=== PATIENT | male | born 1935 | race Caucasian/White ===

== ENCOUNTER 2016-04-04 08:34 | Inpatient (IN) | payer MEDICARE, BC ==
--- NOTE | 2016-04-04 08:51 | ED ---
General Adult HPI - General Stated complaint: fall, chest pain Time Seen by Provider: 04/04/16 08:35 Source: RN notes reviewed - History of Present Illness Initial comments: Patient presents emergency Department after a fall in the garage. Patient denies being lightheaded or dizzy prior to the event. Patient states he was walking across he lost his balance and fell backwards in his head on the concrete. Patient states he has no headache he has no numbness weakness. Patient denies any neck pain. Patient denies any difficulty breathing or shortness of breath per patient states prior to the episode he had no symptoms she just lost spelled that happens to him occasionally. Patient states his chest hurts now a little bit towards the base of this time while at the xiphoid process he states it only hurts when he takes a deep breath or moves his arms back and forth. Patient denies any abdominal pain patient denies nausea vomiting diarrhea. Patient denies any back pain. Patient denies any recent fever chills or cough. Patient denies any lower extremity problems or hip problem - Related Data Home Medications Medication Instructions Recorded Confirmed Aspirin 81 mg PO DAILY 04/21/14 04/04/16 metFORMIN HCL [Glucophage] 500 mg PO DAILY 04/21/14 04/04/16 Lisinopril [Zestril] 10 mg PO DAILY 11/28/14 04/04/16 Hydrochlorothiazide 12.5 mg PO DAILY 04/04/16 04/04/16 Pravastatin Sodium [Pravachol] 40 mg PO DAILY 04/04/16 04/04/16 Previous Rx's Medication Instructions Recorded Metoprolol Tartrate [Lopressor] 25 mg PO BID tab 12/02/14 Allergies Allergy/AdvReac Type Severity Reaction Status Date / Time No Known Allergies Allergy Verified 04/04/16 10:08 Review of Systems ROS Statement: Those systems with pertinent positive or pertinent negative responses have been documented in the HPI. ROS Other: All systems not noted in ROS Statement are negative. Past Medical History Past Medical History: Diabetes Mellitus, Hyperlipidemia, Hypertension Additional Past Medical History / Comment(s): Previous history of a cardiac murmur History of Any Multi-Drug Resistant Organisms: None Reported Past Surgical History: Tonsillectomy Additional Past Surgical History / Comment(s): cataract surgery in 2011, colonscopy Past Anesthesia/Blood Transfusion Reactions: No Reported Reaction Past Psychological History: No Psychological Hx Reported Smoking Status: Former smoker Past Alcohol Use History: None Reported Past Drug Use History: None Reported - Past Family History Father Additional Family Medical History / Comment(s): heart disease General Exam - General Exam Comments Initial Comments: GENERAL: Patient is well-developed and well-nourished. Patient is nontoxic and well- hydrated and is in mild distress. ENT: Neck is soft and supple. No significant lymphadenopathy is noted. Oropharynx is clear. Moist mucous membranes. Neck has full range of motion without eliciting any pain. Occipital region of the skull has a laceration EYES: The sclera were anicteric and conjunctiva were pink and moist. Extraocular movements were intact and pupils were equal round and reactive to light. Eyelids were unremarkable. PULMONARY: Unlabored respirations. Good breath sounds bilaterally. No audible rales rhonchi or wheezing was noted. CARDIOVASCULAR: There is a regular rate and rhythm . Patient has a 2/6 murmur ABDOMEN: Soft and nontender with normal bowel sounds. No palpable organomegaly was noted. There is no palpable pulsatile mass. SKIN: Skin is clear with no lesions or rashes and otherwise unremarkable. NEUROLOGIC: Patient is alert and oriented x3. Cranial nerves II through XII are grossly intact. Motor and sensory are also intact. Normal speech, volume and content. Symmetrical smile. MUSCULOSKELETAL: Normal extremities with adequate strength and full range of motion. No lower extremity swelling or edema. No calf tenderness. LYMPHATICS: No significant lymphadenopathy is noted PSYCHIATRIC: Normal psychiatric evaluation. Course Vital Signs 04/04/16 04/04/16 04/04/16 09:00 09:02 09:30 Temperature 103.1 F H Pulse Rate 110 H 108 H 115 H Respiratory 16 18 18 Rate Blood Pressure 164/75 164/75 163/92 O2 Sat by Pulse 95 96 98 Oximetry 04/04/16 04/04/16 04/04/16 10:09 10:56 11:45 Temperature 102.1 F H 98.1 F Pulse Rate 117 H Respiratory 18 Rate Blood Pressure 143/65 O2 Sat by Pulse 95 Oximetry Procedures - Laceration Laceration #1 Time Out Performed: Yes Indication: laceration Site: scalp Size (cm): 3 Description: stellate Depth: simple, single layer Size of Sutures: other (Riki were put in place) Medical Decision Making - Medical Decision Making EKG shows sinus tachycardia at 108 bpm DE interval is 222 QRS is 96 QT interval 310 QTC 4:15. Patient's EKG shows no ST segment elevation or depression or T- wave abdomen is noted. Chest x-ray is normal CT of the head and neck showed no acute abnormalities patient is somewhat confused initially he said he knew that he had a tetanus and later I asked him he said he has no idea when his tetanus is and he is still having some sternal discomfort with movement or deep breathing or palpation. I spoke with Dr. Purcell he agreed to admit the patient for transfer observation - Lab Data Result diagrams: 04/04/16 09:00 04/04/16 09:00 Lab Results 04/04/16 04/04/16 04/04/16 Range/Units 09:00 09:00 09:00 WBC 9.7 (3.8-10.6) k/uL RBC 4.73 (4.30-5.90) m/uL Hgb 15.4 (13.0-17.5) gm/dL Hct 45.4 (39.0-53.0) % MCV 95.9 (80.0-100.0) fL MCH 32.5 (25.0-35.0) pg MCHC 33.9 (31.0-37.0) g/dL RDW 13.9 (11.5-15.5) % Plt Count 189 (150-450) k/uL Neutrophils % 92 % Lymphocytes % 3 % Monocytes % 4 % Eosinophils % 1 % Basophils % 0 % Neutrophils # 8.9 H (1.3-7.7) k/uL Lymphocytes # 0.3 L (1.0-4.8) k/uL Monocytes # 0.4 (0-1.0) k/uL Eosinophils # 0.1 (0-0.7) k/uL Basophils # 0.0 (0-0.2) k/uL PT (9.0-12.0) sec INR (<1.1) APTT (22.0-30.0) sec Sodium 139 (137-145) mmol/L Potassium 4.0 (3.5-5.1) mmol/L Chloride 99 (98-107) mmol/L Carbon Dioxide 25 (22-30) mmol/L Anion Gap 15 mmol/L BUN 18 (9-20) mg/dL Creatinine 0.78 (0.66-1.25) mg/dL Est GFR (MDRD) Af Amer >60 (>60 ml/min/1.73 sqM) Est GFR (MDRD) Non-Af >60 (>60 ml/min/1.73 sqM) Glucose 165 H (74-99) mg/dL Plasma Lactic Acid Shar (0.7-2.0) mmol/L Calcium 9.2 (8.4-10.2) mg/dL Magnesium 1.6 (1.6-2.3) mg/dL Total Bilirubin 1.3 (0.2-1.3) mg/dL AST 57 (17-59) U/L ALT 70 (21-72) U/L Alkaline Phosphatase 162 H (38-126) U/L Total Creatine Kinase 124 (55-170) U/L CK-MB (CK-2) 1.1 (0.0-2.4) ng/mL CK-MB (CK-2) Rel Index 0.9 Troponin I 0.027 (0.000-0.034) ng/mL Total Protein 7.4 (6.3-8.2) g/dL Albumin 4.1 (3.5-5.0) g/dL Urine Color Urine Appearance (Clear) Urine pH (5.0-8.0) Ur Specific [place] (1.001-1.035) Urine Protein (Negative) Urine Glucose (UA) (Negative) Urine Ketones (Negative) Urine Blood (Negative) Urine Nitrate (Negative) Urine Bilirubin (Negative) Urine Urobilinogen (<2.0) mg/dL Ur Leukocyte Esterase (Negative) Urine RBC (0-5) /hpf Urine WBC (0-5) /hpf Ur Squamous Epith Cells (0-4) /hpf Urine Mucus (None) /hpf Urine Sperm (None) /hpf Influenza Type A RNA (Not Detectd) Influenza Type B (PCR) (Not Detectd) 04/04/16 04/04/16 04/04/16 Range/Units 09:00 09:00 09:23 WBC (3.8-10.6) k/uL RBC (4.30-5.90) m/uL Hgb (13.0-17.5) gm/dL Hct (39.0-53.0) % MCV (80.0-100.0) fL MCH (25.0-35.0) pg MCHC (31.0-37.0) g/dL RDW (11.5-15.5) % Plt Count (150-450) k/uL Neutrophils % % Lymphocytes % % Monocytes % % Eosinophils % % Basophils % % Neutrophils # (1.3-7.7) k/uL Lymphocytes # (1.0-4.8) k/uL Monocytes # (0-1.0) k/uL Eosinophils # (0-0.7) k/uL Basophils # (0-0.2) k/uL PT 11.0 (9.0-12.0) sec INR 1.1 (<1.1) APTT 22.1 (22.0-30.0) sec Sodium (137-145) mmol/L Potassium (3.5-5.1) mmol/L Chloride (98-107) mmol/L Carbon Dioxide (22-30) mmol/L Anion Gap mmol/L BUN (9-20) mg/dL Creatinine (0.66-1.25) mg/dL Est GFR (MDRD) Af Amer (>60 ml/min/1.73 sqM) Est GFR (MDRD) Non-Af (>60 ml/min/1.73 sqM) Glucose (74-99) mg/dL Plasma Lactic Acid Shar 1.3 (0.7-2.0) mmol/L Calcium (8.4-10.2) mg/dL Magnesium (1.6-2.3) mg/dL Total Bilirubin (0.2-1.3) mg/dL AST (17-59) U/L ALT (21-72) U/L Alkaline Phosphatase (38-126) U/L Total Creatine Kinase (55-170) U/L CK-MB (CK-2) (0.0-2.4) ng/mL CK-MB (CK-2) Rel Index Troponin I (0.000-0.034) ng/mL Total Protein (6.3-8.2) g/dL Albumin (3.5-5.0) g/dL Urine Color Urine Appearance (Clear) Urine pH (5.0-8.0) Ur Specific [place] (1.001-1.035) Urine Protein (Negative) Urine Glucose (UA) (Negative) Urine Ketones (Negative) Urine Blood (Negative) Urine Nitrate (Negative) Urine Bilirubin (Negative) Urine Urobilinogen (<2.0) mg/dL Ur Leukocyte Esterase (Negative) Urine RBC (0-5) /hpf Urine WBC (0-5) /hpf Ur Squamous Epith Cells (0-4) /hpf Urine Mucus (None) /hpf Urine Sperm (None) /hpf Influenza Type A RNA Not Detected (Not Detectd) Influenza Type B (PCR) Not Detected (Not Detectd) 04/04/16 Range/Units 09:29 WBC (3.8-10.6) k/uL RBC (4.30-5.90) m/uL Hgb (13.0-17.5) gm/dL Hct (39.0-53.0) % MCV (80.0-100.0) fL MCH (25.0-35.0) pg MCHC (31.0-37.0) g/dL RDW (11.5-15.5) % Plt Count (150-450) k/uL Neutrophils % % Lymphocytes % % Monocytes % % Eosinophils % % Basophils % % Neutrophils # (1.3-7.7) k/uL Lymphocytes # (1.0-4.8) k/uL Monocytes # (0-1.0) k/uL Eosinophils # (0-0.7) k/uL Basophils # (0-0.2) k/uL PT (9.0-12.0) sec INR (<1.1) APTT (22.0-30.0) sec Sodium (137-145) mmol/L Potassium (3.5-5.1) mmol/L Chloride (98-107) mmol/L Carbon Dioxide (22-30) mmol/L Anion Gap mmol/L BUN (9-20) mg/dL Creatinine (0.66-1.25) mg/dL Est GFR (MDRD) Af Amer (>60 ml/min/1.73 sqM) Est GFR (MDRD) Non-Af (>60 ml/min/1.73 sqM) Glucose (74-99) mg/dL Plasma Lactic Acid Shar (0.7-2.0) mmol/L Calcium (8.4-10.2) mg/dL Magnesium (1.6-2.3) mg/dL Total Bilirubin (0.2-1.3) mg/dL AST (17-59) U/L ALT (21-72) U/L Alkaline Phosphatase (38-126) U/L Total Creatine Kinase (55-170) U/L CK-MB (CK-2) (0.0-2.4) ng/mL CK-MB (CK-2) Rel Index Troponin I (0.000-0.034) ng/mL Total Protein (6.3-8.2) g/dL Albumin (3.5-5.0) g/dL Urine Color Yellow Urine Appearance Clear (Clear) Urine pH 7.0 (5.0-8.0) Ur Specific [place] 1.017 (1.001-1.035) Urine Protein Trace H (Negative) Urine Glucose (UA) Negative (Negative) Urine Ketones 3+ H (Negative) Urine Blood Small H (Negative) Urine Nitrate Negative (Negative) Urine Bilirubin Negative (Negative) Urine Urobilinogen <2.0 (<2.0) mg/dL Ur Leukocyte Esterase Negative (Negative) Urine RBC 43 H (0-5) /hpf Urine WBC 4 (0-5) /hpf Ur Squamous Epith Cells <1 (0-4) /hpf Urine Mucus Rare H (None) /hpf Urine Sperm Rare (None) /hpf Influenza Type A RNA (Not Detectd) Influenza Type B (PCR) (Not Detectd) Disposition Clinical Impression: Fall, Concussion, Sternal contusion, Scalp laceration Disposition: ADMITTED IP TO THIS [facility] Time of Disposition: 11:32
[2016-04-04] MEDS ORDERED: IBUPROFEN 600 MG TAB PO STA (09:01)
[2016-04-04] MEDS ORDERED: ACETAMINOPHEN TAB 500 MG TAB PO STA (09:02)
[2016-04-04] MEDS ORDERED: SODIUM CHLORIDE 0.9% 1,000 ML IV ONE ×2 (09:02→11:32)
[2016-04-04 09:36] LABS: Basophils % (A) 0 %; CH 32.9; CHCM 34.4; Eosinophils # (A) 0.1 k/uL (0-0.7); Eosinophils % (A) 1 %; HCT 45.4 % (39.0-53.0); HDW 2.31; HGB 15.4 gm/dL (13.0-17.5); Luc # (Auto) 0.07; Luc % (Auto) 1; Lymphocytes # (A) 0.3 k/uL (1.0-4.8); Lymphocytes % (A) 3 %; MCH 32.5 pg (25.0-35.0); MCHC 33.9 g/dL (31.0-37.0); MCV 95.9 fL (80.0-100.0); Mean Platelet Volume 6.5; Monocytes # (A) 0.4 k/uL (0-1.0); Monocytes % (A) 4 %; Neutrophils # (A) 8.9 k/uL (1.3-7.7); Neutrophils % (A) 92 %; RBC 4.73 m/uL (4.30-5.90); RDW 13.9 % (11.5-15.5); WBC 9.7 k/uL (3.8-10.6); WBC (Perox) 9.75
[2016-04-04 09:38] LABS: INR 1.1 (<1.1); Partial Thromboplastin Time 22.1 sec (22.0-30.0)
[2016-04-04 09:51] LABS: ALT 70 U/L (21-72); AST 57 U/L (17-59); Alkaline Phosphatase 162 U/L (38-126); Anion Gap 15 mmol/L; Blood Urea Nitrogen 18 mg/dL (9-20); Calcium 9.2 mg/dL (8.4-10.2); Carbon Dioxide 25 mmol/L (22-30); Chloride 99 mmol/L (98-107); Glucose 165 mg/dL (74-99); Magnesium 1.6 mg/dL (1.6-2.3); Non-African American GFR(MDRD) >60 (>60 ml/min/1.73 sqM); Sodium 139 mmol/L (137-145); Total Bilirubin 1.3 mg/dL (0.2-1.3); Total Protein 7.4 g/dL (6.3-8.2)
[2016-04-04 09:54] LABS: Appearance,Urine Clear (Clear); Bilirubin,Urine Negative (Negative); Glucose,Urine (UA) Negative (Negative); Ketones,Urine 3+ (Negative); Leukocyte Esterase,Urine Negative (Negative); Mucus,Urine Rare /hpf; Nitrite,Urine Negative (Negative); Particle Count 1742; Protein,Urine Trace (Negative); RBC,Urine 43 /hpf (0-5); Specific Gravity,Urine 1.017 (1.001-1.035); Sperm,Urine Rare /hpf; Squamous Epithelial Cell,Urine <1 /hpf (0-4); UA Billing (MACRO vs. MICRO) MICRO; Urobilinogen,Urine <2.0 mg/dL (<2.0); WBC,Urine 4 /hpf (0-5)
--- NOTE | 2016-04-04 10:01 | CT ---
EXAMINATION TYPE: CT brain wilbur morris DATE OF EXAM: 04/04/2016 9:51 AM COMPARISON: NONE HISTORY: Patient fell today striking the back of his head CT DLP: 1776.1 mGycm, Automated exposure control for dose reduction was used. CONTRAST: None CT of the brain is performed utilizing 3 mm thick sections through the posterior fossa and 3 mm thick sections through the remaining calvarium. Study is performed within 24 hours of arrival to the hospital. No abnormal hyperdensity is present to suggest an acute intracranial hemorrhage. No mass lesion is evident. No acute infarcts are evident. Chronic appearing periventricular white matter ischemic type changes are present. Ventricles and sulci are appropriate for the patient age. No acute fractures are evident. Soft tissue swelling is over the occipital region. Paranasal sinuses and mastoid air cells within the [id number] are clear. IMPRESSIONS: 1. Periventricular white matter ischemic changes, stable. CT cervical spine. COMPARISON: None CT of the cervical spine is performed in the axial plane at 2 mm thick sections. Reconstructed image s in the coronal, and sagittal plane are reviewed on the computer. No acute fractures are evident. There is some minimal kyphosis C5-C6. Normal lordosis otherwise present. There is minimal anterior simmons bluxation C7 anterior and T1. Degenerative disc changes are present C5-6, C6-7 and C7-T1. Spondylosis is present. Facet hypertrophy is present C3-4. Facet hypertrophy is present on left at C4-5. Vertebral body heights are preserved. No spinal canal stenosis is evident. Some foraminal narrowing is present at the facet hypertrophy levels. IMPRESSIONS: 1. No acute osseous abnormality. 2. Minimal anterior subluxation C7 on T1. 3. Facet degenerative changes
[2016-04-04 10:16] LABS: Creatine Kinase MB 1.1 ng/mL (0.0-2.4); Troponin I 0.027 ng/mL (0.000-0.034)
--- NOTE | 2016-04-04 10:43 | XR ---
EXAMINATION TYPE: XR chest 2V DATE OF EXAM: 04/04/2016 10:32 AM COMPARISON: Prior chest x-ray 27 November 2014 HISTORY: Chest pain, fall TECHNIQUE: Frontal and lateral views of the chest are obtained. FINDINGS: There is no focal air space opacity, pleural effusion, or pneumothorax seen. The cardiac silhouette size is within normal limits. There are overlying cardiac leads. The entire costophrenic angle on the left is not included on the exam. The osseous structures are intact. IMPRESSION: No acute cardiopulmonary process.
[2016-04-04] MEDS ORDERED: DIPH,PERTUS(ACELL)TETVAC-LF 0.5 ML VIAL IM ONE (10:57)
[2016-04-04] MEDS ORDERED: LEVOFLOXACIN 750MG-D5W PMX 750 MG in DEXTROSE/WATER 1 150ML.BAG IVPB STA (11:25)
[2016-04-04 13:18] LABS: Glucose,Whole Blood 137 mg/dL (75-99)
[2016-04-04] MEDS: IBUPROFEN 600 MG TAB PO SCH ×2 (15:50→21:37)
[2016-04-04 16:35] VITALS: BMI 29.4
[2016-04-04 16:58] LABS: Glucose,Whole Blood 199 mg/dL (75-99)
[2016-04-04] MEDS: ACETAMINOPHEN TAB 500 MG TAB PO PRN (17:10)
[2016-04-04] MEDS: INSULIN LISPRO (humaLOG) 300 UNIT/3 ML VIAL SQ SCH ×2 (18:10→21:32)
[2016-04-04 21:16] LABS: Glucose,Whole Blood 115 mg/dL (75-99)
[2016-04-04] MEDS: METOPROLOL TARTRATE 25 MG TAB PO SCH (21:36)
[2016-04-05] MEDS: ACETAMINOPHEN TAB 500 MG TAB PO PRN ×3 (00:07→13:17)
[2016-04-05 07:00] LABS: Glucose,Whole Blood 123 mg/dL (75-99)
[2016-04-05] MEDS: INSULIN LISPRO (humaLOG) 300 UNIT/3 ML VIAL SQ SCH ×5 (07:44→21:04)
[2016-04-05] MEDS: IBUPROFEN 600 MG TAB PO SCH ×3 (07:50→21:00)
--- NOTE | 2016-04-05 07:59 | HP ---
DATE OF ADMISSION: CHIEF COMPLAINT: Fall. HISTORY OF PRESENT ILLNESS: This 80-year-old gentleman was admitted to the hospital after he fell. The patient was at [facility]. He was balancing an egg muffin in one hand and a coffee in another hand and walking towards the car and as he stepped off the curb he lost his balance. He balanced backwards. He stepped back, however, he kept going down and fell onto the concrete ground. The patient hit his head. He thinks he might have momentarily lost consciousness. He recalls that he suddenly noticed that the EMS was there. The patient totally was alert. He denied any other symptoms; however, in the emergency room, the patient was also noted to be febrile with a temperature of 103.1. He has a heart rate of 108, respirations 18, blood pressure 164/75, pulse ox 96% on 2 L. The patient had no explainable source of fever. The patient had denied any symptoms of fever. He does feel generalized weakness for the past couple of weeks. He has had some pain in the right knee joint and then received a cortisone shot in the right knee about [address] Xiong. The patient denied any exacerbation of pain in the right knee. He says the shot helped about a week. He continues to have discomfort in the knee. He has difficulty walking with those painful knees. The patient's temperature as mentioned was 103.1 after initial Motrin, the patient's fever has come down. The patient also complained of pain in the right parasternal area. The pain is aggravated by movements. He did not have any pain prior to this fall. The pain is only since the fall. The patient denies any other associated symptoms of cough, congestion, flu symptoms, diarrhea, or any urinary symptoms. In the past, the patient has had episodes of spontaneous urinary tract infections. His urinalysis in the emergency room was fairly clean. He had 43 RBCs. His influenza was negative. The patient did have 3+ ketones in the urine. Past medical history is primarily significant for diabetes mellitus type 2, well controlled. He has had it for the past 12 years. History of hypertension for 38 years. He had a pneumonia back in 2007 and he has had a previous history of colonic diverticulosis with bleeding. He has a history of pericarditis back in 1977 with no recurrence. He does have as mentioned above episodes of urinary tract infections. The patient does suffer from degenerative arthritis. Past surgical history included tonsillectomy, cataract surgery and previous ( ) resection. 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 PERSONAL HISTORY: The patient is an ex-smoker, quit smoking in 1967. He used to smoke a pack per day for 20 years. Alcohol up to 2 drinks a day. VACCINATIONS: Tetanus shot less than 10 years about 9 years now. Annual flu shots. He has had a Pneumovax in the past. Allergies to BEE STINGS with local reaction; with PREDNISONE he does not feel well. Medications at home include: 1. Pravastatin 40 mg daily. 2. Aspirin 81 mg daily. 3. Glucophage 500 mg daily. 4. Metoprolol 25 mg b.i.d. 5. Lisinopril 10 mg daily. 6. Hydrochlorothiazide 12.5 mg daily. 7. He takes multivitamin daily. SOCIAL HISTORY: The patient is . 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 Most of the time he lives in [place]. The patient does periodically bike. FAMILY MEDICAL HISTORY: Father at the age of 93 of ASHD. Mother at the age of 71 she had significant arthritis with complications. The patient has had 2 brothers, one with history of coronary artery disease. All the 4 sisters had [id number]. They are all carriers. The patient has had no children. REVIEW OF SYSTEMS: NEURO: Denied any headaches or dizziness prior to the fall. He does have some headache at the site of scalp injury. Possible momentary loss of consciousness or seizures. Denied any double vision, blurred vision. No symptoms of syncope prior to fall or dizziness prior to fall. PSYCH: No anxiety, depression. CARDIAC: Denies chest pain, angina, palpitation. RESPIRATORY: Denies shortness of breath, cough, hemoptysis. GI: Denied any nausea, vomiting, abdominal pain, diarrhea, constipation, hematochezia, melena. : Denies symptoms of dysuria, hematuria. Does have some frequency. EXTREMITIES: Some pain in the right knee joint, especially the right knee. CONSTITUTIONAL: No chills. Patient did not know he had a fever, noted to have a temperature in the ER. SKIN: No rashes. MUSCULOSKELETAL: Complaint of pain in the right lower parasternal area with movements. No tenderness of the ribs on the right side. ENT: Decreased hearing recently bought new hearing aids. ORAL: No symptoms. PHYSICAL EXAMINATION: Pleasant 80-year-old who at present is awake, alert, oriented. Reported to have some intermittent mild confusion according to the ER physician and subsequently by the nurse; however, at my time of evaluation between the ER physician and the floor nurse, the patient did not exhibit any confusion. VITAL SIGNS: As mentioned above earlier, patient did have a fever. At the time of my evaluation, patient's temperature was 102.1, pulse 117, respirations 18, blood pressure 143/65, pulse ox of 95% on 2 L. HEENT: Normocephalic. The patient have a scalp laceration left occipital area. Ears reveal no drainage. Pupils are reactive. Conjunctivae are pink. Scleral nonicteric. Nostrils clear. Oral cavity is moist. Neck reveals no JVD, carotid bruits, or thyromegaly. Chest examination is clear to auscultation. CARDIAC: Normal S1, S2 with no gallops, murmurs or rubs appreciated. Abdomen is soft, no palpable masses. Bowel sounds are normal. No organomegaly. No abdominal bruits. The patient does have mild tenderness of the right parasternal rib area and right knee reveals significant degenerative arthritis. NEUROLOGICALLY: Awake, alert, oriented x3 at present evaluation. Cranial nerves 2 through 12 appear intact. Equal bilateral hand grasps and strength in both upper extremities is good. Lower extremities equal strength. Patient's plantars and equivocal bilateral. Plantars are downgoing bilateral. The DTRs are symmetrical bilateral. Laboratory assessment was a CAT scan of the brain and neck which revealed periventricular white matter ischemic changes, which are stable. C-spine shows minimal anterior subluxation C7 on T1 and degenerative arthritis. Chest x-ray unremarkable. Urinalysis had ketones, 3+ ketones, and RBCs. CBC is normal. White count 9.7 with a slight shift. Chemistry is normal. Glucose was 165. Alkaline phosphatase was 162. Cardiac enzymes negative. ASSESSMENT: 1. Fever source unknown possibly urinary tract infection, cannot be ruled out as he has had recurrent urinary tract infections in the past. 2. Mechanical fall with closed head injury. 3. Scalp laceration. 4. Diabetes mellitus. 5. History of hypertension. 6. Degenerative arthritis right knee. 7. Right parasternal chest wall pain. PLAN: The patient is admitted to the hospital. He will be empirically started on Levaquin. The patient's urine culture is pending. Neuro checks. Monitor blood sugars. If the patient remains stable in the next 24 to 48, he will be discharged. The patient's prognosis is guarded. Condition discussed with the patient. He will require subsequent evaluation by the orthopedic physicians regarding his knee complaints.
[2016-04-05] MEDS: LISINOPRIL 10 MG TAB PO SCH (08:00)
[2016-04-05] MEDS: ASPIRIN 81 MG CHEW PO SCH (08:00)
[2016-04-05] MEDS: METOPROLOL TARTRATE 25 MG TAB PO SCH ×2 (08:00→21:00)
[2016-04-05] MEDS: metFORMIN 500 MG TAB PO SCH (08:00)
[2016-04-05] MEDS: PRAVASTATIN SODIUM 40 MG TAB PO SCH (08:00)
[2016-04-05] MEDS ORDERED: HYDROCHLOROTHIAZIDE 12.5 MG CAP PO SCH (09:00)
[2016-04-05 09:12] LABS: Basophils % (A) 0 %; CH 32.5; Eosinophils # (A) 0.1 k/uL (0-0.7); Eosinophils % (A) 1 %; HCT 44.8 % (39.0-53.0); HDW 2.36; HGB 15.1 gm/dL (13.0-17.5); Immature Gran Flag Moderate; Luc % (Auto) 1; Lymphocytes # (A) 0.6 k/uL (1.0-4.8); Lymphocytes % (A) 4 %; MCH 33.3 pg (25.0-35.0); MCHC 33.7 g/dL (31.0-37.0); MCV 98.9 fL (80.0-100.0); Mean Platelet Volume 6.7; Monocytes # (A) 0.6 k/uL (0-1.0); Monocytes % (A) 4 %; Neutrophils # (A) 14.2 k/uL (1.3-7.7); Neutrophils % (A) 91 %; RBC 4.53 m/uL (4.30-5.90); WBC 15.7 k/uL (3.8-10.6); WBC (Perox) 15.34
[2016-04-05 10:36] LABS: Hemoglobin A1C 6.1 % (4.2-6.1)
[2016-04-05 10:43] LABS: Manual Review Performed; Toxic Granulation Present
[2016-04-05 12:27] LABS: Glucose,Whole Blood 97 mg/dL (75-99)
[2016-04-05] MEDS: LEVOFLOXACIN 500 MG TAB PO SCH (14:20)
[2016-04-05 16:52] LABS: Glucose,Whole Blood 135 mg/dL (75-99)
[2016-04-05] MEDS: HYDROCHLOROTHIAZIDE 12.5 MG CAP PO SCH (18:08)
[2016-04-05 21:01] LABS: Glucose,Whole Blood 149 mg/dL (75-99)
[2016-04-05] MEDS: HEPARIN SODIUM,PORCINE 5,000 UNIT/ML 1 ML VIAL SQ SCH (23:21)
[2016-04-06 07:45] LABS: Glucose,Whole Blood 120 mg/dL (75-99)
[2016-04-06] MEDS: INSULIN LISPRO (humaLOG) 300 UNIT/3 ML VIAL SQ SCH ×4 (08:02→21:28)
[2016-04-06] MEDS: ASPIRIN 81 MG CHEW PO SCH (08:02)
[2016-04-06] MEDS: PRAVASTATIN SODIUM 40 MG TAB PO SCH (08:02)
[2016-04-06] MEDS: LISINOPRIL 10 MG TAB PO SCH (08:02)
[2016-04-06] MEDS: METOPROLOL TARTRATE 25 MG TAB PO SCH ×2 (08:02→21:28)
[2016-04-06] MEDS: HEPARIN SODIUM,PORCINE 5,000 UNIT/ML 1 ML VIAL SQ SCH ×2 (08:03→21:27)
[2016-04-06] MEDS: metFORMIN 500 MG TAB PO SCH (08:03)
[2016-04-06] MEDS: IBUPROFEN 600 MG TAB PO SCH ×3 (08:09→21:29)
--- NOTE | 2016-04-06 08:12 | XR ---
EXAMINATION TYPE: XR chest 2V DATE OF EXAM: 04/06/2016 7:16 AM COMPARISON: Prior chest x-ray third of April 2016, 23 April 2014 HISTORY:Trauma and sternal pain, fever TECHNIQUE: Frontal and lateral views of the chest are obtained. FINDINGS: Minimal blunting of the posterior costophrenic angle may be indicative of a small effusion but appears chronic, there may be some minimal basilar atelectasis. Patient is rotated and there are overlying cardiac leads. Cardiomediastinal silhouette, pulmonary vascularity and sofya are not signif icantly changed. Right shoulder is high riding, suspect chronic rotator cuff tear. Patient is rotated . IMPRESSION: There may be minimal basilar atelectasis. Alternate imaging may been increased sensitivi ty to exclude sternal fracture.
[2016-04-06 09:00] LABS: CH 32.7; HCT 45.5 % (39.0-53.0); HDW 2.51; HGB 14.4 gm/dL (13.0-17.5); MCH 31.6 pg (25.0-35.0); MCHC 31.7 g/dL (31.0-37.0); MCV 99.7 fL (80.0-100.0); Macrocytosis Slight; Mean Platelet Volume 7.5; RBC 4.56 m/uL (4.30-5.90); RDW 14.2 % (11.5-15.5); WBC 14.6 k/uL (3.8-10.6)
[2016-04-06 09:18] LABS: ALT 100 U/L (21-72); AST 101 U/L (17-59); Alkaline Phosphatase 187 U/L (38-126); Anion Gap 15 mmol/L; Blood Urea Nitrogen 35 mg/dL (9-20); Calcium 9.5 mg/dL (8.4-10.2); Carbon Dioxide 24 mmol/L (22-30); Chloride 102 mmol/L (98-107); Glucose 144 mg/dL (74-99); Non-African American GFR(MDRD) >60 (>60 ml/min/1.73 sqM); Sodium 141 mmol/L (137-145); Total Bilirubin 1.7 mg/dL (0.2-1.3); Total Protein 6.7 g/dL (6.3-8.2)
--- NOTE | 2016-04-06 10:16 | PN ---
CHIEF COMPLAINT: Re-evaluation. HISTORY OF PRESENT ILLNESS: This is a 80-year-old gentleman who was admitted to the hospital after a fall. The patient had sustained a closed head injury and a laceration to the scalp. The patient was also noted to be febrile with a temperature of 103. The patient during the night had a low-grade temperature; otherwise he is feeling well. The patient denied any other symptoms. Denies any headaches. He does have a right sternal, parasternal pain since he fell. Denies any shortness of breath. REVIEW OF SYSTEMS: NEURO: Denies any headaches, dizziness. PSYCH: No anxiety. CARDIAC: No chest pain, angina, palpitations except for the right parasternal pain, right lower parasternal pain as mentioned above. GI: No nausea, vomiting, abdominal pain, diarrhea, constipation, hematochezia, melena. : No symptoms of dysuria, hematuria, urgency, frequency. EXTREMITIES: No pain. CONSTITUTIONAL: No fever or chills. PHYSICAL EXAMINATION: Pleasant gentleman in no distress. Vital signs reveal temperature of 100.7 in the night. At the time of this dictation, the patient's temperature earlier today at 1:00 was 102.6. HEENT: Normocephalic. NECK: No JVD. Chest is clear to auscultation. ( ) the patient does have some tenderness in the right breast right lower parasternal area which aggravates with movements. Chest is clear to auscultation and percussion. CARDIAC: Normal S1, S2 with no gallops. Systolic murmur 2/6 left sternal border and right second intercostal space. ABDOMEN: Soft. No palpable masses. Bowel sounds normal. No organomegaly. No abdominal bruits. Extremities reveal no edema. Patient does have DJD changes in the right knee. CONSTITUTIONAL: No fever, chills. ( ) changes. Neurologically awake, alert, oriented x3 with well coordinated movements. LABORATORY ASSESSMENT: White count 15,700, hemoglobin 15.1 with a left shift. Blood culture so far negative. Urine culture is negative so far. The patient's scalp laceration site is clean. ASSESSMENT: 1. Fever source undetermined. 2. Fall at the curb side. 3. Scalp laceration. 4. Closed head injury. 5. Degenerative arthritis right knee. 6. History of hypertension. PLAN: The patient is stable. Continue present medical regimen. The patient's condition discussed with the patient. Prognosis guarded. We will continue to monitor the patient. He is on Levaquin at present and we will continue the same. Patient's prognosis remains guarded. Patient's condition discussed with the patient.
[2016-04-06 11:48] LABS: Erythrocyte Sedimentation Rate 54 mm/hr (0-15)
[2016-04-06 12:08] LABS: Glucose,Whole Blood 101 mg/dL (75-99)
[2016-04-06] MEDS: LEVOFLOXACIN 500 MG TAB PO SCH (14:23)
--- NOTE | 2016-04-06 14:52 | XR ---
Right RIBS HISTORY: Pain 4 views of the right ribs correlated to chest x-ray same day There is motion unmonitored views. No displaced rib fracture is evident. Bone mineralization is reduc ed and could limit sensitivity. Degenerative disc changes in the visualized spine. IMPRESSION: No evidence acute osseous abnormality. Bone scan could be performed for increased sensiti vity as indicated.
[2016-04-06] MEDS: HYDROcodone/APAP 5-325MG 1 EACH TAB PO PRN (16:01)
[2016-04-06 17:15] LABS: Glucose,Whole Blood 125 mg/dL (75-99)
[2016-04-06 21:28] LABS: Glucose,Whole Blood 131 mg/dL (75-99)
[2016-04-06] MEDS: HYDROCHLOROTHIAZIDE 12.5 MG CAP PO SCH (21:28)
[2016-04-07 07:38] LABS: Glucose,Whole Blood 125 mg/dL (75-99)
--- NOTE | 2016-04-07 09:19 | PN ---
DATE OF SERVICE: 04/06/2016 CHIEF COMPLAINT: Re-evaluation. HISTORY OF PRESENT ILLNESS: A 80-year-old gentleman who was admitted to the hospital after a fall. The patient also noted to have a fever. He did have a temperature yesterday. The patient subsequent to that does not have a temperature and his urine and blood cultures have come back negative. Repeat chest x-ray reveals no evidence of infiltrates. The patient continues to have pain in the right chest. Patient's x-ray of the ribs was negative. REVIEW OF SYSTEMS: NEURO: Denies any headaches. No double vision, blurred vision. PSYCH: No anxiety, depression. CARDIAC: No chest pain, angina, palpitation. RESPIRATORY: Denies shortness of breath, cough. GI: No nausea, vomiting, abdominal pain, diarrhea. : No symptoms of dysuria, hematuria. EXTREMITIES: No pain. CONSTITUTIONAL: No fever or chills. PHYSICAL EXAMINATION: A pleasant gentleman in no distress. Vital signs as mentioned above did have a temperature yesterday up 102.6. This morning, patient's temperature 97.1, pulse 93, respirations 20, blood pressure 117/62, pulse ox 95% on room air. HEENT: Normocephalic. Scalp surgical site is clean. NECK: Decreased in motion. Chest is clear to auscultation and percussion with some tenderness in the right lower ribs anteriorly. Lung [place] reveal clear to auscultation. CARDIAC: Normal S1, S2 with no gallops, murmurs. ABDOMEN: Soft. Bowel sounds present. Extremities reveal no edema. Pain in the knee joints. CONSTITUTIONAL: No fever or chills. ASSESSMENT: 1. Fever source unknown. 2. Status post fall. 3. Closed head injury improved. 4. Scalp laceration healing. PLAN: The patient is stable. Continue present medical regimen. The patient's condition discussed with the patient. Prognosis guarded. LABORATORY ASSESSMENT: Today, white count was coming down 14.6. Sed rate was high at 54. BUN 35, creatinine 1.0. Glucose 144. Patient's condition discussed with the patient. Prognosis guarded. Potential discharge home tomorrow if stable.
[2016-04-07] MEDS: HEPARIN SODIUM,PORCINE 5,000 UNIT/ML 1 ML VIAL SQ SCH ×2 (09:50→22:20)
[2016-04-07] MEDS: PRAVASTATIN SODIUM 40 MG TAB PO SCH (09:50)
[2016-04-07] MEDS: LISINOPRIL 10 MG TAB PO SCH (09:50)
[2016-04-07] MEDS: METOPROLOL TARTRATE 25 MG TAB PO SCH ×2 (09:51→22:21)
[2016-04-07] MEDS: metFORMIN 500 MG TAB PO SCH (09:51)
[2016-04-07] MEDS: ASPIRIN 81 MG CHEW PO SCH (09:51)
[2016-04-07] MEDS: IBUPROFEN 600 MG TAB PO SCH ×3 (09:51→22:21)
[2016-04-07] MEDS: INSULIN LISPRO (humaLOG) 300 UNIT/3 ML VIAL SQ SCH ×4 (09:52→22:21)
[2016-04-07] MEDS: HYDROcodone/APAP 5-325MG 1 EACH TAB PO PRN (11:52)
[2016-04-07 12:07] LABS: Glucose,Whole Blood 144 mg/dL (75-99)
--- NOTE | 2016-04-07 13:05 | CDI ---
In responding to this query, please exercise your independent professional judgment. The [facility] Coding Staff and Clinical Documentation Specialists appreciate your assistance in clarifying documentation, maintaining compliance with coding guidelines, accurately documenting patients condition and capturing severity of illness. The fact that a question is asked does not imply that any particular answer is desired or expected. Communication forms are a method of clarifying documentation and are not made part of the Legal Health Record. Thank you in advance for your clarification. Last Revision, January 2015 Carlos Lunsford [address] [facility] [place] [address] Documentation Clarification Form Date: 04/07/2016 12:52:00 PM From: Alysa Diana RN, CCDS Admit Date: 04/05/2016 11:57:00 AM Patient Name: Duane Marie Visit Number: [id number] Dr. Amol Purcell History/Risk Factors: Fall, recurrent UTI Clinical Indicators: WBC: 9.7/15.7/14.6 Left Shift: 8.9/14.2 Lactic acid: 1.3/2.2 Blood cultures: negative Vitals signs on admission: Temp 102.6, HR 109, RR 18, B/P 112/55, Spo2 93% RA Other Clinical Indicators: H&P: "Fever source unknown possibly urinary tract infection, cannot be ruled out as he has had recurrent urinary tract infections in the past." Treatment: Antibiotics: Levaquin 750mg IVPB x1 followed by 500mg PO Q 24 hrs IV Bolus: 1l 0.9%NS followed by 75 cc/hr In your professional opinion, can you please clarify if these findings signify one of the following conditions, whether the condition is POA, and cause, if known? Sepsis Severe Sepsis Septic Shock Unable to determine Other, please specify * Identify the (suspected) organism * Link or clarify if there is associated (due to/with): - Organ failure - Shock SIRS Criteria: 2 or more of the following may indicate SIRS Temperature < 96.8F(36C) or > 101.0F (38C) Heart Rate > 90 bpm Respiratory Rate > 20 breaths/min or PaCO2 < 32 mmHg White Blood Cell Count > 12,000 or < 4,000 cells/mm3 or > 10% bands Please document in your progress notes and discharge summary in order to capture severity of illness and risk of mortality. Include clinical findings that support your diagnosis. FYI: Press F11 to launch patient chart. Place X here if this finding has no clinical significance, is not applicable or if you are not able to provide any additional documentation. SRIKANTH
[2016-04-07] MEDS: LEVOFLOXACIN 500 MG TAB PO SCH (14:11)
[2016-04-07 17:18] LABS: Glucose,Whole Blood 128 mg/dL (75-99)
[2016-04-07 21:20] LABS: Glucose,Whole Blood 120 mg/dL (75-99)
[2016-04-07] MEDS: HYDROCHLOROTHIAZIDE 12.5 MG CAP PO SCH (22:21)
[2016-04-08 07:28] LABS: Glucose,Whole Blood 110 mg/dL (75-99)
[2016-04-08 07:48] VITALS: BP 142/60; PULSE 93; RESP 18; TEMP 96.2
[2016-04-08] MEDS: IBUPROFEN 600 MG TAB PO SCH (08:19)
[2016-04-08] MEDS: LISINOPRIL 10 MG TAB PO SCH (08:20)
[2016-04-08] MEDS: PRAVASTATIN SODIUM 40 MG TAB PO SCH (08:20)
[2016-04-08] MEDS: ASPIRIN 81 MG CHEW PO SCH (08:20)
[2016-04-08] MEDS: METOPROLOL TARTRATE 25 MG TAB PO SCH (08:20)
[2016-04-08] MEDS: HEPARIN SODIUM,PORCINE 5,000 UNIT/ML 1 ML VIAL SQ SCH (08:20)
[2016-04-08] MEDS: metFORMIN 500 MG TAB PO SCH (08:21)
[2016-04-08] MEDS: INSULIN LISPRO (humaLOG) 300 UNIT/3 ML VIAL SQ SCH (08:27)
--- NOTE | 2016-04-08 09:12 | PN ---
DATE OF SERVICE: 04/07/2016 CHIEF COMPLAINT: Re-evaluation. HISTORY OF PRESENT ILLNESS: This gentleman is feeling fairly well. REVIEW OF SYSTEMS: NEURO: Denies any headaches, dizziness. PSYCH: No anxiety. CARDIAC: No chest pain, shortness of breath. RESPIRATORY: No shortness of breath, cough. GI: No nausea, vomiting, abdominal pain, diarrhea. : No symptoms of dysuria, hematuria, urgency, frequency. EXTREMITIES: No pain except in the right knee. CONSTITUTIONAL: No fever or chills. HEMATOLOGIC: No anemia or bleeding disorder. ENDOCRINE: History of diabetes, controlled. MUSCULOSKELETAL: Some pain in the right parasternal area with no clear evidence of fracture of the ribs. The patient seems to have symptoms suggestive of costochondral injury on the right side. CONSTITUTIONAL: No further fever. PHYSICAL EXAMINATION: Pleasant gentleman in no distress. VITAL SIGNS: Temperature 98.1, pulse 95, respirations 21, blood pressure 116/68, pulse ox 94% on room air. HEENT: Normocephalic. NECK: No JVD. Chest is clear to auscultation. CARDIAC: Normal S1, S2 with no gallops, murmurs. The patient does have tenderness in the right parasternal, right lower parasternal area, not in the sternum but in the right costochondral area. ABDOMEN: Soft. Bowel sounds active. EXTREMITIES: No edema. No tenderness. NEUROLOGIC: Awake, alert, oriented with well-coordinated movements. Laboratory assessment: Accu-Cheks which had been fairly good range. ASSESSMENT: 1. Fever resolved. Still suspect patient had lower urinary tract infection. Possible prostatitis. 2. Fall prior to hospitalization. Laceration of scalp. 3. Closed head injury, improved. 4. Diabetes mellitus. 5. Debility. PLAN: The patient at present is stable. Continue present medical regimen. Patient was initially planned for discharge home with home care ( ) issues rather than to the nursing facility. However, after realizing that he does take two people to help him assist to moves around he has elected to go to a nursing facility. The patient's condition discussed with the patient. Prognosis guarded.
--- NOTE | 2016-04-08 10:08 | P.DS ---
Providers Date of admission: 04/05/16 11:57 Attending physician: Amol Purcell Primary care physician: Amol Purcell [facility] Course: History of present illness: 80-year-old gentleman admitted to the hospital after a fall. Prior to that the patient had no particular symptoms. He missed a step on a curb went backwards and fell to the ground causing a closed head injury and scalp laceration. Patient had tiffanie placed in. Wound is healing. No focal neurological signs and CAT scan was negative for any intracranial injury. Patient continued to have fever for about 2 days. He was first noted to have a temperature in the emergency room. Chest x-ray reveals no clear pneumonia, no symptoms of cough congestion. Urine culture negative. He has had previous episodes of similar fever with urinary tract infections and suspected prostatitis. Is also noted to have a history of TURP and carcinoma of the prostate with [place] 6 in no treatment. He has history of diabetes mellitus. Blood sugars adequately controlled history of hypertension on medical therapy. History of degenerative arthritis affecting the right knee and recent intra-articular steroid with no help. The joint is not inflamed. He has no GI symptoms. Still constipated. Urinating adequately. No skin rashes. Patient was started on Levaquin and responded with deffervescence of the fever and improvement in the white count, patient was to go home yesterday however he is a big man and his youth services librarian felt that she could not help him. Patient prior to that had elected not to go to a nursing facility but is agreeable to go to a different nursing facility for rehab. He complains of generalized weakness. Diagnosis to include 1. Fever with presumed urinary tract infection 2. Closed head injury 3. Scalp laceration 4. History of carcinoma of prostate 5. Diabetes mellitus controlled 6. Hypertension controlled 7. Debility. Plan - Discharge Summary New Discharge Prescriptions: HYDROcodone/APAP 5-325MG [[place] 5-325] 1 each PO Q4H PRN #60 tab PRN Reason: Pain Levofloxacin [Levaquin] 500 mg PO Q24H #10 tab Discharge Medication List Aspirin 81 mg PO DAILY 04/21/14 [History] metFORMIN HCL [Glucophage] 500 mg PO DAILY 04/21/14 [History] Lisinopril [Zestril] 10 mg PO DAILY 11/28/14 [History] Metoprolol Tartrate [Lopressor] 25 mg PO BID tab 12/02/14 [Rx] Hydrochlorothiazide 12.5 mg PO DAILY 04/04/16 [History] Pravastatin Sodium [Pravachol] 40 mg PO DAILY 04/04/16 [History] HYDROcodone/APAP 5-325MG [[place] 5-325] 1 each PO Q4H PRN #60 tab 04/07/16 [Rx] Ibuprofen [Motrin] 600 mg PO TID tab 04/07/16 [Rx] Levofloxacin [Levaquin] 500 mg PO Q24H #10 tab 04/07/16 [Rx] Follow up Appointment(s)/Referral(s): Amol Purcell MD [Primary Care Provider] - 04/13/16 9:45 am [facility], [NON-STAFF] - Patient Instructions/Handouts: Type 2 Diabetes in Adults (DC) Discharge Disposition: HOME SELF-CARE
== END 2016-04-08 12:34 | DRG 690 ==
LOC: EC 08:34 → 4MS4W 11:32 → OBSVTOIN 04-05 11:57
PROVIDERS: ADMIT Internal Medicine; ATTEND Internal Medicine
DX: N39.0 Urinary tract infection, site not specified (principal); C61 Malignant neoplasm of prostate; E11.9 Type 2 diabetes mellitus without complications; S06.0X9A Concussion with loss of consciousness of unspecified duration, initial encounter; I10 Essential (primary) hypertension; E78.5 Hyperlipidemia, unspecified; K57.30 Diverticulosis of large intestine without perforation or abscess without bleeding; K59.00 Constipation, unspecified; M17.11 Unilateral primary osteoarthritis, right knee; S01.01XA Laceration without foreign body of scalp, initial encounter; W10.1XXA Fall (on)(from) sidewalk curb, initial encounter; W18.30XA Fall on same level, unspecified, initial encounter; Z79.82 Long term (current) use of aspirin; Z82.49 Family history of ischemic heart disease and other diseases of the circulatory system; Z87.440 Personal history of urinary (tract) infections; Z87.891 Personal history of nicotine dependence
CPT/HCPCS: 12013; 36415; 70450; 71020; 72125; 80053; 81001; 82550; 82553; 83036; 83605; 83735; 84484; 85025; 85027; 85610; 85652; 85730; 87040; 87086; 87502; 90471; 90715; 93005; 96360; 96361; 99285

== ENCOUNTER 2016-04-08 14:59 | Inpatient (IN) | payer MEDICARE, BC ==
[2016-04-08] MEDS ORDERED: SODIUM CHLORIDE 0.9% 1,000 ML IV STA (15:09)
[2016-04-08] MEDS ORDERED: IPRATROPIUM-ALBUTEROL 3 ML NEB INHALATION STA ×2 (15:10→18:09)
[2016-04-08] MEDS ORDERED: MORPHINE SULFATE 4 MG/ML SYRINGE IVP STA (15:21)
[2016-04-08] MEDS ORDERED: RX INFO: IV CONTRAST WAS GIVEN 1 EACH MISC MISCELLANE PRN (15:21)
--- NOTE | 2016-04-08 15:22 | ED ---
General Adult HPI - General Stated complaint: HYPOXIA Time Seen by Provider: 04/08/16 15:06 Source: RN notes reviewed, old records reviewed - History of Present Illness Initial comments: This is a 80-year-old male to the ED co shortness of breath, weakness, dehydration, elevated heart rate, chest pain. Patient has complex recent medical history with prolonged hospitalization found by prolonged rehab stay. Patient sent in by rehab for evaluation of hypoxia, he was said to be disc discharged today. Patient does admit to having increased weakness, and feels like his heart is racing, mildly short of breath - Related Data Previous Rx's Medication Instructions Recorded HYDROmorphone [Dilaudid] 1 mg PO Q3H PRN #30 ml 04/12/16 LORazepam ORAL CONC [Ativan 1 mg PO DIRECTED #30 ml 04/12/16 Intensol] Scopolamine 1.5MG/72Hr Patch 1 patch TRANSDERM Q72H PRN #0 patch 04/12/16 [TransDerm Scop] fentaNYL 12MCG/HR PATCH [Duragesic 1 patch TRANSDERM Q72H #5 patch 04/12/16 12MCG/HR] Allergies Allergy/AdvReac Type Severity Reaction Status Date / Time No Known Allergies Allergy Verified 04/08/16 16:24 Review of Systems ROS Statement: Those systems with pertinent positive or pertinent negative responses have been documented in the HPI. ROS Other: All systems not noted in ROS Statement are negative. Past Medical History Past Medical History: Diabetes Mellitus, Hyperlipidemia, Hypertension Additional Past Medical History / Comment(s): Previous history of a cardiac murmur History of Any Multi-Drug Resistant Organisms: None Reported Past Surgical History: Tonsillectomy Additional Past Surgical History / Comment(s): cataract surgery in 2010, colonscopy Past Anesthesia/Blood Transfusion Reactions: No Reported Reaction Past Psychological History: No Psychological Hx Reported Additional Psychological History / Comment(s): Pt resides alone part of the time. His domestic partner stays with his at times. He uses a cane as needed. He drives. Smoking Status: Former smoker Past Alcohol Use History: None Reported Additional Past Alcohol Use History / Comment(s): Pt started smoking in 9 and quit in 1967. He drinks daily-one or two drinks a day. Past Drug Use History: None Reported - Past Family History Father Additional Family Medical History / Comment(s): heart disease General Exam General appearance: alert, anxious, in distress Head exam: Present: atraumatic, normocephalic, normal inspection Eye exam: Present: normal appearance, PERRL, EOMI. Absent: scleral icterus, conjunctival injection, periorbital swelling ENT exam: Present: mucous membranes dry Neck exam: Present: normal inspection. Absent: tenderness, meningismus, lymphadenopathy Respiratory exam: Present: normal lung sounds bilaterally. Absent: respiratory distress, wheezes, rales, rhonchi, stridor Cardiovascular Exam: Present: normal rhythm, tachycardia, normal heart sounds. Absent: systolic murmur, diastolic murmur, rubs, gallop, clicks GI/Abdominal exam: Present: soft, normal bowel sounds. Absent: distended, tenderness, guarding, rebound, rigid Extremities exam: Present: normal inspection, full ROM, normal capillary refill. Absent: tenderness, pedal edema, joint swelling, calf tenderness Back exam: Present: normal inspection Neurological exam: Present: alert, oriented X3, CN II-XII intact Psychiatric exam: Present: normal affect, normal mood Skin exam: Present: warm, dry, intact, normal color. Absent: rash Course Vital Signs 04/08/16 04/08/16 04/08/16 15:28 15:35 15:55 Temperature 98.8 F Pulse Rate 134 H 133 H 132 H Respiratory 28 H 24 Rate Blood Pressure 125/62 112/59 O2 Sat by Pulse 98 95 Oximetry 04/08/16 04/08/16 04/08/16 16:00 16:16 18:15 Temperature 96.9 F L Pulse Rate 136 H 126 H 107 H Respiratory 24 18 Rate Blood Pressure 84/49 88/52 O2 Sat by Pulse 95 93 L Oximetry 04/08/16 04/08/16 04/08/16 18:37 18:57 18:59 Temperature Pulse Rate 100 100 Respiratory 20 18 Rate Blood Pressure 82/49 87/51 O2 Sat by Pulse 94 L 96 97 Oximetry 04/08/16 19:08 Temperature Pulse Rate 100 Respiratory 18 Rate Blood Pressure 92/55 O2 Sat by Pulse 97 Oximetry - Reevaluation(s) Reevaluation #1: 04/08/16 16:[address] Purcell regarding patient, concern for PE EKG Findings - EKG Comments: EKG Findings:: EKG shows sinus tachycardia rate 134, [place] 194, QRS 94, QTc 462 Medical Decision Making - Medical Decision Making 7 mL year for evaluation elevated heart rate. During evaluation patient has severely elevated d-dimer, ultrasound and VQ or low probability for PE and DVT, patient will be admitted for IV resuscitation and further evaluation and management epoxy, monitoring of respiratory and cardiopulmonary status - Lab Data Result diagrams: 04/10/16 04:54 04/10/16 13:07 Lab Results 04/08/16 04/08/16 04/08/16 Range/Units 15:21 15:21 15:21 WBC 4.1 (3.8-10.6) k/uL RBC 4.63 (4.30-5.90) m/uL Hgb 15.1 (13.0-17.5) gm/dL Hct 44.7 (39.0-53.0) % MCV 96.5 (80.0-100.0) fL MCH 32.5 (25.0-35.0) pg MCHC 33.7 (31.0-37.0) g/dL RDW 14.3 (11.5-15.5) % Plt Count 148 L (150-450) k/uL Neutrophils % 91 % Lymphocytes % 4 % Monocytes % 2 % Eosinophils % 1 % Basophils % 0 % Neutrophils # 3.7 (1.3-7.7) k/uL Lymphocytes # 0.2 L (1.0-4.8) k/uL Monocytes # 0.1 (0-1.0) k/uL Eosinophils # 0.0 (0-0.7) k/uL Basophils # 0.0 (0-0.2) k/uL Manual Slide Review Performed Toxic Granulation Present Poikilocytosis (manual Present PT (9.0-12.0) sec INR (<1.1) APTT (22.0-30.0) sec D-Dimer (<0.60) mg/L FEU Sodium (137-145) mmol/L Potassium (3.5-5.1) mmol/L Chloride (98-107) mmol/L Carbon Dioxide (22-30) mmol/L Anion Gap mmol/L BUN (9-20) mg/dL Creatinine (0.66-1.25) mg/dL Est GFR (MDRD) Af Amer (>60 ml/min/1.73 sqM) Est GFR (MDRD) Non-Af (>60 ml/min/1.73 sqM) Glucose (74-99) mg/dL POC Glucose (mg/dL) 106 H (75-99) mg/dL POC Glu Tripoler Reva Marmolejo Plasma Lactic Acid Shar (0.7-2.0) mmol/L Calcium (8.4-10.2) mg/dL Magnesium (1.6-2.3) mg/dL Total Bilirubin (0.2-1.3) mg/dL AST (17-59) U/L ALT (21-72) U/L Alkaline Phosphatase (38-126) U/L Total Creatine Kinase 103 (55-170) U/L CK-MB (CK-2) 0.9 (0.0-2.4) ng/mL CK-MB (CK-2) Rel Index 0.9 Troponin I 0.035 H* (0.000-0.034) ng/mL NT-Pro-B Natriuret Pep pg/mL Total Protein (6.3-8.2) g/dL Albumin (3.5-5.0) g/dL Urine Color Urine Appearance (Clear) Urine pH (5.0-8.0) Ur Specific [place] (1.001-1.035) Urine Protein (Negative) Urine Glucose (UA) (Negative) Urine Ketones (Negative) Urine Blood (Negative) Urine Nitrate (Negative) Urine Bilirubin (Negative) Urine Urobilinogen (<2.0) mg/dL Ur Leukocyte Esterase (Negative) Urine RBC (0-5) /hpf Urine WBC (0-5) /hpf Ur Squamous Epith Cells (0-4) /hpf Urine Bacteria (None) /hpf Cellular Casts (0) /lpf Hyaline Casts (0-2) /lpf Urine Mucus (None) /hpf 04/08/16 04/08/16 04/08/16 Range/Units 15:21 15:21 15:21 WBC (3.8-10.6) k/uL RBC (4.30-5.90) m/uL Hgb (13.0-17.5) gm/dL Hct (39.0-53.0) % MCV (80.0-100.0) fL MCH (25.0-35.0) pg MCHC (31.0-37.0) g/dL RDW (11.5-15.5) % Plt Count (150-450) k/uL Neutrophils % % Lymphocytes % % Monocytes % % Eosinophils % % Basophils % % Neutrophils # (1.3-7.7) k/uL Lymphocytes # (1.0-4.8) k/uL Monocytes # (0-1.0) k/uL Eosinophils # (0-0.7) k/uL Basophils # (0-0.2) k/uL Manual Slide Review Toxic Granulation Poikilocytosis (manual PT 10.9 (9.0-12.0) sec INR 1.1 (<1.1) APTT 24.7 (22.0-30.0) sec D-Dimer 9.85 H (<0.60) mg/L FEU Sodium 138 (137-145) mmol/L Potassium 3.7 (3.5-5.1) mmol/L Chloride 103 (98-107) mmol/L Carbon Dioxide 17 L (22-30) mmol/L Anion Gap 18 mmol/L BUN 63 H (9-20) mg/dL Creatinine 1.60 H (0.66-1.25) mg/dL Est GFR (MDRD) Af Amer 51 (>60 ml/min/1.73 sqM) Est GFR (MDRD) Non-Af 42 (>60 ml/min/1.73 sqM) Glucose 118 H (74-99) mg/dL POC Glucose (mg/dL) (75-99) mg/dL POC Glu Tripoler ID Plasma Lactic Acid Shar (0.7-2.0) mmol/L Calcium 9.4 (8.4-10.2) mg/dL Magnesium 2.0 (1.6-2.3) mg/dL Total Bilirubin 2.6 H (0.2-1.3) mg/dL AST 155 H (17-59) U/L ALT 131 H (21-72) U/L Alkaline Phosphatase 351 H (38-126) U/L Total Creatine Kinase (55-170) U/L CK-MB (CK-2) (0.0-2.4) ng/mL CK-MB (CK-2) Rel Index Troponin I (0.000-0.034) ng/mL NT-Pro-B Natriuret Pep 741 pg/mL Total Protein 6.4 (6.3-8.2) g/dL Albumin 3.0 L (3.5-5.0) g/dL Urine Color Urine Appearance (Clear) Urine pH (5.0-8.0) Ur Specific [place] (1.001-1.035) Urine Protein (Negative) Urine Glucose (UA) (Negative) Urine Ketones (Negative) Urine Blood (Negative) Urine Nitrate (Negative) Urine Bilirubin (Negative) Urine Urobilinogen (<2.0) mg/dL Ur Leukocyte Esterase (Negative) Urine RBC (0-5) /hpf Urine WBC (0-5) /hpf Ur Squamous Epith Cells (0-4) /hpf Urine Bacteria (None) /hpf Cellular Casts (0) /lpf Hyaline Casts (0-2) /lpf Urine Mucus (None) /hpf 04/08/16 04/08/16 Range/Units 15:21 15:31 WBC (3.8-10.6) k/uL RBC (4.30-5.90) m/uL Hgb (13.0-17.5) gm/dL Hct (39.0-53.0) % MCV (80.0-100.0) fL MCH (25.0-35.0) pg MCHC (31.0-37.0) g/dL RDW (11.5-15.5) % Plt Count (150-450) k/uL Neutrophils % % Lymphocytes % % Monocytes % % Eosinophils % % Basophils % % Neutrophils # (1.3-7.7) k/uL Lymphocytes # (1.0-4.8) k/uL Monocytes # (0-1.0) k/uL Eosinophils # (0-0.7) k/uL Basophils # (0-0.2) k/uL Manual Slide Review Toxic Granulation Poikilocytosis (manual PT (9.0-12.0) sec INR (<1.1) APTT (22.0-30.0) sec D-Dimer (<0.60) mg/L FEU Sodium (137-145) mmol/L Potassium (3.5-5.1) mmol/L Chloride (98-107) mmol/L Carbon Dioxide (22-30) mmol/L Anion Gap mmol/L BUN (9-20) mg/dL Creatinine (0.66-1.25) mg/dL Est GFR (MDRD) Af Amer (>60 ml/min/1.73 sqM) Est GFR (MDRD) Non-Af (>60 ml/min/1.73 sqM) Glucose (74-99) mg/dL POC Glucose (mg/dL) (75-99) mg/dL POC Glu Tripoler ID Plasma Lactic Acid Shar 4.5 H* (0.7-2.0) mmol/L Calcium (8.4-10.2) mg/dL Magnesium (1.6-2.3) mg/dL Total Bilirubin (0.2-1.3) mg/dL AST (17-59) U/L ALT (21-72) U/L Alkaline Phosphatase (38-126) U/L Total Creatine Kinase (55-170) U/L CK-MB (CK-2) (0.0-2.4) ng/mL CK-MB (CK-2) Rel Index Troponin I (0.000-0.034) ng/mL NT-Pro-B Natriuret Pep pg/mL Total Protein (6.3-8.2) g/dL Albumin (3.5-5.0) g/dL Urine Color Yellow Urine Appearance Cloudy (Clear) Urine pH 5.5 (5.0-8.0) Ur Specific [place] 1.012 (1.001-1.035) Urine Protein 1+ H (Negative) Urine Glucose (UA) Negative (Negative) Urine Ketones Negative (Negative) Urine Blood Small H (Negative) Urine Nitrate Negative (Negative) Urine Bilirubin Negative (Negative) Urine Urobilinogen 2.0 (<2.0) mg/dL Ur Leukocyte Esterase Negative (Negative) Urine RBC 2 (0-5) /hpf Urine WBC 4 (0-5) /hpf Ur Squamous Epith Cells 1 (0-4) /hpf Urine Bacteria Occasional H (None) /hpf Cellular Casts 4 (0) /lpf Hyaline Casts 4 H (0-2) /lpf Urine Mucus Occasional H (None) /hpf - Radiology Data Radiology results: report reviewed, image reviewed Critical Care Time Critical Care Time: Yes Total Critical Care Time: 31 Disposition Clinical Impression: Sinus tachycardia, Weakness, Hypoxemia Disposition: ADMITTED IP TO THIS [facility] Condition: Serious
[2016-04-08 15:23] LABS: Glucose,Whole Blood 106 mg/dL (75-99)
[2016-04-08 15:42] LABS: Basophils % (A) 0 %; CH 32.8; CHCM 34.1; Eosinophils % (A) 1 %; HCT 44.7 % (39.0-53.0); HDW 2.63; HGB 15.1 gm/dL (13.0-17.5); Immature Gran Flag Marked; Luc # (Auto) 0.04; Luc % (Auto) 1; Lymphocytes # (A) 0.2 k/uL (1.0-4.8); Lymphocytes % (A) 4 %; MCH 32.5 pg (25.0-35.0); MCHC 33.7 g/dL (31.0-37.0); MCV 96.5 fL (80.0-100.0); Mean Platelet Volume 7.4; Monocytes # (A) 0.1 k/uL (0-1.0); Monocytes % (A) 2 %; Neutrophils # (A) 3.7 k/uL (1.3-7.7); Neutrophils % (A) 91 %; RBC 4.63 m/uL (4.30-5.90); RDW 14.3 % (11.5-15.5); WBC 4.1 k/uL (3.8-10.6); WBC (Perox) 4.45
--- NOTE | 2016-04-08 15:42 | XR ---
EXAMINATION TYPE: XR chest 1V portable DATE OF EXAM: 04/08/2016 3:31 PM COMPARISON: Chest x-ray from 2 days earlier. HISTORY: Chest pain and hypoxia. TECHNIQUE: Single AP portable frontal upright view of the chest is obtained. FINDINGS: Diminished inspiration is seen on current study. There is chronic parenchymal change withou t new suspicious focal air space opacity, pleural effusion, or pneumothorax seen bilaterally. The ca rdiac silhouette size is within normal limits with atherosclerotic thoracic aorta. The osseous stru ctures are demineralized. IMPRESSION: Poor inspiration and chronic parenchymal changes without suspicious acute pulmonary proc ess.
[2016-04-08 15:56] LABS: Calcium 9.4 mg/dL (8.4-10.2); Potassium 3.7 mmol/L (3.5-5.1); Total Bilirubin 2.6 mg/dL (0.2-1.3); Total Protein 6.4 g/dL (6.3-8.2)
[2016-04-08 15:59] LABS: Appearance,Urine Cloudy (Clear); Bacteria,Urine Occasional /hpf; Bilirubin,Urine Negative (Negative); Glucose,Urine (UA) Negative (Negative); Ketones,Urine Negative (Negative); Leukocyte Esterase,Urine Negative (Negative); Mucus,Urine Occasional /hpf; Nitrite,Urine Negative (Negative); PH, Urine 5.5 (5.0-8.0); Particle Count 12336; Protein,Urine 1+ (Negative); RBC,Urine 2 /hpf (0-5); Specific Gravity,Urine 1.012 (1.001-1.035); Squamous Epithelial Cell,Urine 1 /hpf (0-4); UA Billing (MACRO vs. MICRO) MICRO; WBC,Urine 4 /hpf (0-5)
[2016-04-08 16:10] LABS: Manual Review Performed; Toxic Granulation Present
[2016-04-08 16:12] LABS: Creatine Kinase MB 0.9 ng/mL (0.0-2.4); INR 1.1 (<1.1); Partial Thromboplastin Time 24.7 sec (22.0-30.0); Prothrombin Time 10.9 sec (9.0-12.0)
[2016-04-08 16:19] LABS: Troponin I 0.035 ng/mL (0.000-0.034)
--- NOTE | 2016-04-08 17:25 | CT ---
EXAMINATION TYPE: CT brain wo con DATE OF EXAM: 04/08/2016 5:06 PM HISTORY: Patient poor historian. Patient complains of weakness. CT DLP: 1174 mGycm. Automated Exposure Control for Dose Reduction was Utilized. TECHNIQUE: CT scan of the head is performed without contrast. COMPARISON: CT brain April 04, 2016 FINDINGS: There is no acute intracranial hemorrhage or midline shift identified. There is diffuse v entricular and sulcal prominence consistent with diffuse age-related cerebral atrophy. There is low- attenuation in the periventricular white matter consistent with chronic small vessel ischemic change. The globes are intact and the visualized sinuses are clear. Soft tissue density in the right gi asst al auditory canal is felt to reflect cerumen. IMPRESSION: No acute intracranial hemorrhage or midline shift. There is moderate diffuse age-relate d cerebral atrophy and chronic small vessel ischemic change redemonstrated. No significant change fr om prior study is seen.
--- NOTE | 2016-04-08 17:29 | US ---
EXAMINATION TYPE: US venous doppler duplex LE DATE OF EXAM: 04/08/2016 4:44 PM COMPARISON: NONE CLINICAL HISTORY: US. SOB, leg pain and swelling SIDE PERFORMED: Bilateral VESSELS IMAGED: External Iliac Vein (EIV) Common Femoral Vein Deep Femoral Vein Greater Saphenous Vein * Femoral Vein Popliteal Vein Proximal Calf Veins (* superficial vessels) Right Leg: No evidence of DVT at this time Left Leg: No evidence of DVT at this time TECHNOLOGIST IMPRESSION: Exam noted suboptimal due to patient noncooperation per technologist. Satisfactory color flow, phasicity, compressibility is seen in the above levels in the bilateral lowe r extremities. IMPRESSION: No evidence of acute DVT in the bilateral lower extremities.
--- NOTE | 2016-04-08 17:49 | US ---
EXAMINATION TYPE: US gallbladder DATE OF EXAM: 04/08/2016 4:32 PM COMPARISON: CT CAP February 28, 2010 CLINICAL HISTORY: US. ABD pain EXAM MEASUREMENTS: Liver Length: 16.6 cm Gallbladder Wall: 0.5 cm CBD: 0.6 cm Right Kidney: 13.1 x 5.6 x 5.6 cm ANATOMY: TECHNOLOGIST IMPRESSION: Exam is suboptimal due to patient's noncooperation per technologist. Pancreas: Obscured by bowel gas Liver: Heterogeneous with numerous heterogeneous ill-defined lesions scattered throughout, largest w ithin left lateral lobe= 6.5 x 6.3 x 7.9 cm, largest in right lobe= 3.5 x 2.8 x 2.6 cm Gallbladder: Only supine images obtained, pt unable to roll LLD position, wall thickened, no evidenc e of shadowing mobile stones Evidence for sonographic Mcnamara's sign: pt having ABD pain during entire exam CBD: wnl Right Kidney: wnl, lower pole gassed out Abnormal appearance of liver with overall heterogeneity and suggestion of numerous heterogeneous comp candis solid lesions. Further investigation is warranted. IMPRESSION: No shadowing mobile gallstones or convincing ultrasound evidence for acute cholecystitis . Abnormal gallbladder wall thickening may be product of underlying liver disease. Metastatic disease needs to be considered. A multiphasic liver protocol CT or MRI follow-up is advised.
[2016-04-08] MEDS ORDERED: ACETAMINOPHEN IV (For NPO) 1,000 MG in EMPTY BAG 1 BAG IVPB PRN (18:00)
[2016-04-08] MEDS ORDERED: ACETAMINOPHEN IV (For NPO) 1,000 MG in EMPTY BAG 1 BAG IVPB STA (18:00)
[2016-04-08] MEDS ORDERED: KETOROLAC 30 MG/ML 1 ML VIAL IVP STA (18:00)
[2016-04-08] MEDS ORDERED: PIPERACILLIN-TAZOBACTAM 3.375 GM in DEXTROSE/WATER 1 50ML.BAG IVPB STA (18:00)
[2016-04-08] MEDS ORDERED: IV VANCOMYCIN PER PHARMACY 1 EACH MISC MISCELLANE PRN (18:05)
--- NOTE | 2016-04-08 18:10 | NM ---
EXAMINATION TYPE: NM pul vent and perfuse DATE OF EXAM: 04/08/2016 5:57 PM COMPARISON: Chest x-ray from earlier today HISTORY: Chest pain and hypoxia TECHNIQUE: Utilizing inhalation of 71.3 mCi Tc 99m DTPA aerosol and intravenous injection of 5.5 mCi of Tc 99m MAA, ventilation and perfusion images are acquired post injection in multiple projections. FINDINGS: Normal radiotracer distribution is noted in the lungs. There is no evidence of mismatched defects. IMPRESSION: Low probability for pulmonary embolism
[2016-04-08] MEDS ORDERED: VANCOMYCIN 1,500 MG in SODIUM CHLORIDE 0.9% 250 ML IVPB ONE (18:15)
[2016-04-08] MEDS ORDERED: LEVOFLOXACIN 750MG-D5W PMX 750 MG in DEXTROSE/WATER 1 150ML.BAG IVPB SCH (18:15)
[2016-04-08] MEDS ORDERED: SODIUM CHLORIDE 0.9% 2,000 ML IV ONE (18:26)
[2016-04-08] MEDS ORDERED: SODIUM CHLORIDE 0.9% 1,000 ML IV ONE (18:26)
[2016-04-08] MEDS: SODIUM CHLORIDE 0.9% 500 ML IV SCH ×2 (18:30→21:12)
[2016-04-08] MEDS ORDERED: IPRATROPIUM-ALBUTEROL 3 ML NEB INHALATION PRN (18:58)
[2016-04-08 19:25] LABS: Glucose,Whole Blood 107 mg/dL (75-99)
[2016-04-08] MEDS ORDERED: NALOXONE 0.4 MG/ML 1 ML VIAL IV PRN (19:40)
[2016-04-08] MEDS: IPRATROPIUM-ALBUTEROL 3 ML NEB INHALATION SCH (19:51)
[2016-04-08] MEDS ORDERED: IPRATROPIUM-ALBUTEROL 3 ML NEB INHALATION SCH (20:00)
[2016-04-08 22:02] LABS: Amorphous Sediment,Urine Rare /hpf; Appearance,Urine Cloudy (Clear); Bilirubin,Urine Negative (Negative); Glucose,Urine (UA) Negative (Negative); Ketones,Urine Negative (Negative); Leukocyte Esterase,Urine Negative (Negative); Mucus,Urine Occasional /hpf; Nitrite,Urine Negative (Negative); PH, Urine 5.5 (5.0-8.0); Particle Count 21300; Protein,Urine 2+ (Negative); RBC,Urine 2 /hpf (0-5); Specific Gravity,Urine 1.012 (1.001-1.035); Sperm,Urine Rare /hpf; UA Billing (MACRO vs. MICRO) MICRO; Urobilinogen,Urine <2.0 mg/dL (<2.0); WBC,Urine 4 /hpf (0-5)
[2016-04-08 23:08] LABS: Creatine Kinase MB 1.8 ng/mL (0.0-2.4)
[2016-04-08 23:09] LABS: Troponin I 0.076 ng/mL (0.000-0.034)
[2016-04-09] MEDS ORDERED: NOREPINEPHRINE 4 MG in SODIUM CHLORIDE 0.9% 250 ML IV SCH (01:30)
[2016-04-09] MEDS: PIPERACILLIN-TAZOBACTAM 3.375 GM in DEXTROSE/WATER 1 50ML.BAG IVPB SCH ×3 (01:33→16:33)
[2016-04-09 03:48] VITALS: BMI 28.5
[2016-04-09 04:40] LABS: Basophils % (A) 0 %; CH 32.4; CHCM 33.1; Eosinophils % (A) 0 %; HCT 36.3 % (39.0-53.0); HDW 2.74; Luc % (Auto) 3; Lymphocytes # (A) 0.5 k/uL (1.0-4.8); Lymphocytes % (A) 3 %; MCH 31.9 pg (25.0-35.0); MCHC 32.4 g/dL (31.0-37.0); MCV 98.5 fL (80.0-100.0); Mean Platelet Volume 7.8; Monocytes # (A) 0.5 k/uL (0-1.0); Monocytes % (A) 3 %; Neutrophils # (A) 14.5 k/uL (1.3-7.7); Neutrophils % (A) 90 %; RBC 3.68 m/uL (4.30-5.90); RDW 14.7 % (11.5-15.5); WBC 16.1 k/uL (3.8-10.6); WBC (Perox) 17.17
[2016-04-09 04:43] LABS: HGB 11.7 gm/dL (13.0-17.5)
[2016-04-09 04:52] LABS: Calcium 7.3 mg/dL (8.4-10.2); Magnesium 1.9 mg/dL (1.6-2.3); Phosphorous 5.4 mg/dL (2.5-4.5); Potassium 3.8 mmol/L (3.5-5.1)
[2016-04-09] MEDS ORDERED: Magnesium Replacement Protocol 1 EACH MISC MISCELLANE PRN (05:12)
[2016-04-09] MEDS ORDERED: Potassium Replacement Protocol 1 EACH MISC MISCELLANE PRN (05:13)
[2016-04-09 05:24] LABS: Creatine Kinase MB 7.7 ng/mL (0.0-2.4); Troponin I 0.288 ng/mL (0.000-0.034)
[2016-04-09] MEDS: MAGNESIUM SULFATE-D5W PMX 1 GM in DEXTROSE/WATER 1 100ML.BAG IVPB SCH ×2 (05:59→08:10)
[2016-04-09] MEDS ORDERED: POTASSIUM CHLORIDE ER 20 MEQ TAB.ER PO SCH (06:00)
--- NOTE | 2016-04-09 07:19 | XR ---
EXAMINATION TYPE: XR chest 1V DATE OF EXAM: 04/09/2016 6:43 AM CLINICAL HISTORY: Difficulty breathing progress study. TECHNIQUE: Single AP portable upright view of the chest is obtained. COMPARISON: Chest x-ray from one day earlier FINDINGS: There is persistent chronic parenchymal change without new suspicious focal air space opaci ty, pleural effusion, or pneumothorax seen bilaterally. The cardiac silhouette size is stable and upp er limits of normal with atherosclerotic thoracic aorta. The osseous structures are demineralized. IMPRESSION: Overall stable findings, chronic parenchymal change without suspicious new acute infilt rate present.
[2016-04-09] MEDS: IPRATROPIUM-ALBUTEROL 3 ML NEB INHALATION SCH ×2 (07:47→11:27)
[2016-04-09] MEDS: ENOXAPARIN 30 MG/0.3 ML SYRINGE SQ SCH (08:11)
[2016-04-09] MEDS: PANTOPRAZOLE 40 MG/10 ML VIAL IV SCH (08:11)
[2016-04-09 08:21] LABS: Glucose,Whole Blood 98 mg/dL (75-99)
[2016-04-09] MEDS ORDERED: ENOXAPARIN 40 MG/0.4 ML SYRINGE SQ SCH (09:00)
[2016-04-09] MEDS ORDERED: VANCOMYCIN 1,500 MG in SODIUM CHLORIDE 0.9% 250 ML IVPB SCH (09:00)
[2016-04-09] MEDS ORDERED: MAGNESIUM HYDROXIDE 2,400 MG/10 ML CUP PO PRN (09:21)
[2016-04-09 10:57] LABS: Bilirubin, Delta 1.3 mg/dL (0.0-0.2); Total Bilirubin 1.8 mg/dL (0.2-1.3); Total Protein 4.7 g/dL (6.3-8.2)
--- NOTE | 2016-04-09 11:55 | P.CNPUL ---
History of Present Illness Consult date: 04/09/16 Chief complaint: Weakness, shortness of breath, dehydration History of present illness: This is a very pleasant 80-year-old gentleman who was recently inpatient here for about for 5 days. The patient came into the emergency room and was seen by one of the ER doctor is. I do not really get a good sense for what was going on with the patient. The patient came in with primarily weakness and maybe some dehydration. Was found have elevated heart rate. Also one point had a lower blood pressure. The patient had a very extensive evaluation down in the ER including a VQ scan a chest x-ray a CT of the brain Dopplers of the lower extremities, and multiple blood work. Nothing really popped up her bili made a lot of sense as to what was going on. The patient has been on a short course of corticosteroids and the recent past and I was wondering whether or not it could relate to some adrenal insufficiency. Anyway the patient is feeling a bit better this morning. Not much better. Mostly just feels not quite with it. His primary doctor's Dr. Purcell. I think he was being discharged to one of the rehab facilities her snf. He was only there for a short period of time. Review of Systems A 12 point review of systems is performed. Is positive for weakness primarily. The patient just felt unsteady. Really have much in way of other complaints. Maybe a bit shortness of breath and maybe some mild chest discomfort but nothing really major that stands out. He doesn't have any gross complaints right now just doesn't feel quite his normal self. Past Medical History Past Medical History: Diabetes Mellitus, Hyperlipidemia, Hypertension Additional Past Medical History / Comment(s): Previous history of a cardiac murmur History of Any Multi-Drug Resistant Organisms: None Reported Past Surgical History: Prostate Surgery, Tonsillectomy Additional Past Surgical History / Comment(s): cataract surgery in 2010, colonscopy. TURP Past Anesthesia/Blood Transfusion Reactions: No Reported Reaction Past Psychological History: No Psychological Hx Reported Additional Psychological History / Comment(s): Pt resides alone part of the time. His domestic partner stays with his at times. He uses a cane as needed. He drives. Smoking Status: Former smoker Past Alcohol Use History: None Reported Additional Past Alcohol Use History / Comment(s): Pt started smoking in 1957 and quit in 1967. He drinks daily-one or two drinks a day. Past Drug Use History: None Reported - Past Family History Father Additional Family Medical History / Comment(s): heart disease Medications and Allergies Home Medications Medication Instructions Recorded Confirmed Type Aspirin 81 mg PO DAILY 04/21/14 04/08/16 History metFORMIN HCL [Glucophage] 500 mg PO DAILY 04/21/14 04/08/16 History Lisinopril [Zestril] 10 mg PO DAILY 11/28/14 04/08/16 History Hydrochlorothiazide 12.5 mg PO DAILY 04/04/16 04/08/16 History Pravastatin Sodium [Pravachol] 40 mg PO DAILY 04/04/16 04/08/16 History HYDROcodone/APAP 5-325MG [[place] 1 tab PO Q4H PRN 04/08/16 04/08/16 History 5-325] Allergies Allergy/AdvReac Type Severity Reaction Status Date / Time No Known Allergies Allergy Verified 04/08/16 16:24 Physical Exam Osteopathic Statement: *. No significant issues noted on an osteopathic structural exam other than those noted in the History and Physical/Consult. Vitals: Vital Signs Temp Pulse Resp BP Pulse Ox 04/09/16 11:36 99 04/09/16 11:30 93 04/09/16 11:29 25 H 04/09/16 11:00 97.4 F L 94 25 H 111/60 96 04/09/16 10:50 96 19 99/54 97 04/09/16 10:40 95 11 L 99/54 97 04/09/16 10:30 96 18 99/54 97 04/09/16 10:20 95 24 106/62 95 04/09/16 10:10 97 29 H 106/62 97 04/09/16 10:00 98 22 106/62 97 04/09/16 09:50 98 24 115/64 97 04/09/16 09:40 99 24 115/64 96 04/09/16 09:30 99 13 115/64 96 04/09/16 09:20 95 25 H 99/56 97 04/09/16 09:10 95 27 H 99/56 96 04/09/16 09:00 96 24 99/56 97 04/09/16 08:50 95 22 96/56 97 04/09/16 08:40 95 30 H 96/56 97 04/09/16 08:30 94 35 H 96/56 97 04/09/16 08:20 94 21 95/57 98 04/09/16 08:10 93 22 95/57 98 04/09/16 08:01 99 04/09/16 08:00 97.5 F L 92 25 H 95/57 100 04/09/16 07:50 89 21 100/58 100 04/09/16 07:49 89 97 04/09/16 07:40 90 21 99/56 96 04/09/16 07:30 91 24 99/56 96 04/09/16 07:20 96 27 H 112/63 96 04/09/16 07:10 91 18 93/60 98 04/09/16 07:00 90 23 93/60 98 04/09/16 06:50 90 26 H 98/65 97 04/09/16 06:40 91 25 H 93/60 97 04/09/16 06:30 91 24 93/60 97 04/09/16 06:20 91 23 94/54 96 04/09/16 06:10 90 23 80/52 97 04/09/16 06:00 88 22 80/52 97 04/09/16 05:50 90 17 83/54 98 04/09/16 05:40 89 16 85/56 98 04/09/16 05:30 89 19 85/56 97 04/09/16 05:20 91 18 83/52 98 04/09/16 05:10 90 21 80/52 98 04/09/16 05:00 90 20 80/52 97 04/09/16 04:50 92 27 H 85/55 97 04/09/16 04:40 92 23 80/51 97 04/09/16 04:30 91 20 80/51 98 04/09/16 04:20 89 20 76/53 97 04/09/16 04:10 89 19 77/52 98 04/09/16 04:00 91 22 73/50 97 04/09/16 03:50 92 19 92/53 96 04/09/16 03:40 93 22 90/56 98 04/09/16 03:30 95 21 90/56 97 04/09/16 03:20 91 20 71/48 98 04/09/16 03:10 92 20 84/54 97 04/09/16 03:00 93 14 84/54 98 04/09/16 02:50 97.4 F L 93 21 87/58 99 04/09/16 02:40 95 25 H 84/52 99 04/09/16 02:30 92 19 84/52 100 04/09/16 02:20 94 20 90/57 96 04/09/16 02:10 97.5 F L 95 21 72/46 100 04/09/16 02:00 92 16 67/44 99 04/09/16 01:50 91 17 82/50 99 04/09/16 01:40 96 22 75/45 100 04/09/16 01:30 91 16 73/45 99 04/09/16 01:20 92 16 66/42 99 04/09/16 01:10 93 15 71/44 98 04/09/16 01:00 94 16 71/44 99 04/09/16 00:50 97 17 72/47 99 04/09/16 00:40 103 H 18 89/56 98 04/09/16 00:30 99 20 89/56 99 04/09/16 00:20 100 26 H 81/53 99 04/09/16 00:10 99 20 78/50 100 04/09/16 00:06 98 20 78/50 100 04/09/16 00:00 98 22 78/50 99 04/08/16 23:50 95 19 68/44 99 04/08/16 23:40 100 13 75/50 98 04/08/16 23:30 102 H 18 75/50 98 04/08/16 23:20 105 H 20 100/56 99 04/08/16 23:10 109 H 21 85/47 99 04/08/16 23:00 106 H 24 85/47 99 04/08/16 22:50 107 H 20 87/49 98 04/08/16 22:40 108 H 32 H 86/58 98 04/08/16 22:30 107 H 37 H 86/58 98 04/08/16 22:20 107 H 25 H 97/54 99 04/08/16 22:10 107 H 27 H 83/52 98 04/08/16 22:00 107 H 27 H 83/52 98 04/08/16 21:50 105 H 17 83/46 96 04/08/16 21:40 104 H 14 97 04/08/16 21:30 106 H 28 H 82/51 04/08/16 21:20 108 H 22 93/51 93 L 04/08/16 21:10 105 H 17 89/54 92 L 04/08/16 21:00 106 H 19 89/54 93 L 04/08/16 20:50 107 H 27 H 101/50 04/08/16 20:40 105 H 21 92/60 93 L 04/08/16 20:30 108 H 20 92/60 04/08/16 20:20 109 H 21 94/53 92 L 04/08/16 20:10 105 H 23 91/52 95 04/08/16 20:00 104 H 16 91/52 100 04/08/16 19:58 104 H 04/08/16 19:50 102 H 17 80/57 98 04/08/16 19:46 105 H 04/08/16 19:40 103 H 20 91/50 98 04/08/16 19:30 103 H 26 H 91/50 04/08/16 19:21 97.5 F L 28 H 92 L 04/08/16 19:08 100 18 92/55 97 04/08/16 18:59 100 18 87/51 97 04/08/16 18:57 96 04/08/16 18:37 100 20 82/49 94 L 04/08/16 18:15 96.9 F L 107 H 18 88/52 93 L Intake and Output 04/08/16 04/09/16 04/09/16 22:59 06:59 14:59 Intake Total 3870 1190 1042.5 Output Total 80 240 605 Balance 3790 950 437.5 Intake: Intake, IV Titration 3750 950 562.5 Amount Magnesium Sulfate-D5w Pmx 100 1 gm In Dextrose/Water 1 100ml.bag @ 100 mls/hr IVPB Q1H [facility] Rx#: [id number] Piperacillin-Tazobactam 3 50 50 37.5 .375 gm In Dextrose/Water 1 50ml.bag @ 12.5 mls/hr IVPB Q8HR [facility] Rx#: [id number] Sodium Chloride 0.9% 1, 200 800 525 000 ml @ 100 mls/hr IV . Q10H [facility] Rx#:[id number] Sodium Chloride 0.9% 2, 2000 000 ml @ 999 mls/hr IV . Q2H1M [facility] Rx#:[id number] Sodium Chloride 0.9% 500 1500 ml @ 1000 mls/hr IV Q35M [facility] Rx#:[id number] Oral 120 240 480 Output: Urine 80 240 605 Other: Voiding Method Indwelling Catheter Indwelling Catheter Indwelling Catheter Weight 95.254 kg 104.5 kg 104.5 kg Patient Weight 04/10/16 06:59 Weight 104.5 kg No acute distress, oriented 3. HEENT examination is grossly unremarkable. Mucous membranes are moist. There are no oral lesions. He's not receiving any supplemental oxygen. Neck supple. Full range of motion. No adenopathy. Cardiovascular examination reveals regular rhythm rate. Heart rate about 90. S1-S2 normal. No murmur noted. Lungs are relatively clear. No wheezes rhonchi or crackles. Abdomen soft bowel sounds are heard. Extremities are intact. There is no edema. Results - Laboratory Findings CBC and BMP: 04/09/16 04:23 04/09/16 04:23 PT/INR, D-dimer PT 10.9 sec (9.0-12.0) 04/08/16 15:21 INR 1.1 (<1.1) 04/08/16 15:21 D-Dimer 9.85 mg/L FEU (<0.60) H 04/08/16 15:21 Abnormal lab findings: Abnormal Labs 04/08/16 04/08/16 04/08/16 19:00 19:23 22:24 WBC RBC Hgb Hct Plt Count Neutrophils # Lymphocytes # Sodium Carbon Dioxide BUN Creatinine Glucose POC Glucose (mg/dL) 107 H Plasma Lactic Acid Shar Calcium Phosphorus Total Bilirubin Delta Bilirubin AST ALT Alkaline Phosphatase Total Creatine Kinase CK-MB (CK-2) Troponin I 0.076 H* Total Protein Albumin Urine Protein 2+ H Urine Blood Small H Amorphous Sediment Rare H Urine Mucus Occasional H 04/08/16 04/09/16 04/09/16 22:24 04:23 04:23 WBC 16.1 H RBC 3.68 L Hgb 11.7 L D Hct 36.3 L Plt Count 121 L Neutrophils # 14.5 H Lymphocytes # 0.5 L Sodium 136 L Carbon Dioxide 17 L BUN 66 H Creatinine 2.47 H Glucose 151 H POC Glucose (mg/dL) Plasma Lactic Acid Shar 4.1 H* Calcium 7.3 L Phosphorus 5.4 H Total Bilirubin Delta Bilirubin AST ALT Alkaline Phosphatase Total Creatine Kinase CK-MB (CK-2) Troponin I Total Protein Albumin Urine Protein Urine Blood Amorphous Sediment Urine Mucus 04/09/16 04/09/16 04:23 04:23 WBC RBC Hgb Hct Plt Count Neutrophils # Lymphocytes # Sodium Carbon Dioxide BUN Creatinine Glucose POC Glucose (mg/dL) Plasma Lactic Acid Shar Calcium Phosphorus Total Bilirubin 1.8 H Delta Bilirubin 1.3 H AST 209 H ALT 139 H Alkaline Phosphatase 199 H Total Creatine Kinase 224 H CK-MB (CK-2) 7.7 H* Troponin I 0.288 H* Total Protein 4.7 L Albumin 2.0 L Urine Protein Urine Blood Amorphous Sediment Urine Mucus - Diagnostic Findings Chest x-ray: image reviewed U/S of Legs: report reviewed (As I mentioned above the patient had a number of studies including a ventilation perfusion lung scan a brain CT Dopplers of the lower extremities chest x-rays and other tests including blood work. They're all reviewed.) Assessment and Plan (1) Hyperlipidemia Status: Acute (2) Hypertension Status: Acute (3) Sinus tachycardia Status: Acute (4) Weakness Status: Acute (5) Diabetes Status: Acute (6) Fall Status: Acute Plan: Plan The patient's labs x-rays and medications are all reviewed. Additional recommendations suggestions are forthcoming. Dopplers of the lower extremities were negative. Ventilation perfusion lung scan was of low probability. Brain CT did not show anything acute and chest x-ray showed just some mild chronic changes. The rest of the medications labs and so forth will be reviewed. Additional recommendations suggestions are forthcoming. Time with Patient: Greater than 30
--- NOTE | 2016-04-09 11:55 | HP ---
DATE OF ADMISSION: CHIEF COMPLAINT: Hypertension. HISTORY OF PRESENT ILLNESS: This 80-year-old gentleman was admitted to the hospital after evaluation in the emergency room. He had been discharged earlier from the hospital. The patient had been admitted to the hospital a few days ago with a closed head injury. The patient also had a fever at that time with no clear source of infection found. Presumed the patient had a urinary tract infection as he has had that a number of times. The patient was placed on Levaquin at the time of admission and he had responded with both decreased temperature and white count. The patient was seen prior to discharge this morning doing fairly well. He had no complaints of any nature. He had right parasternal pain at the time of admission following the fall and was locally tender in the right lower costochondral margin. The patient at the time had no other symptoms. That pain today was improved. He was discharged to a nursing facility for rehab. The patient was transported by transport van there, admitted there. His vital signs at the time of admission to the nursing facility were stable. After a while the patient as he settled down in his bed in the room suddenly started having shaking, chills and the nursing staff noted that he was hypoxic and hypotensive. He was referred back to the hospital. I did see him in the emergency room after the initial evaluation by the ER physician. The patient due to sudden onset of shortness of breath, hypotension after recent hospitalization where anticoagulation was not used because of head injury and concussion, patient did undergo a VQ scan with low probability of PE. The patient had no evidence of DVT in his legs. The patient was flushed and warm and was suspicious of sepsis. The patient's chest x-ray did not reveal any infiltrates. Ultrasound of the gallbladder does reveal a thickened gallbladder. No clear gallstones are seen, but also noted multiple solid nodules in the liver. The patient's alkaline phosphatase was mildly elevated on admission last week. The patient's bilirubin and hepatic functions were normal; however, today the patient's enzymes are up. The patient's bilirubin is 2.6. The patient denies really any significant upper abdominal pain. The patient does appear toxic, which is drastic change from what he was this morning. Denies any nausea, vomiting. No diarrhea. No bowel movement yet. , no symptoms. Extremities, denies pain except to the right knee. No further chills. The patient in the emergency room is mildly tachycardic and mildly hypotensive. Patient's is receiving IV fluids. Past medical history is significant for diabetes mellitus type 2 well controlled. He has had it for the past 12 years. History of hypertension for 38 years, had pneumonia back in 2007, history of colonic diverticulosis with bleeding in the past. History of pericarditis back in 1977 with no recurrence, multiple episodes of urinary tract infections until he had TURP. 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 Past surgical history is significant for tonsillectomy, cataract surgery, TURP. PERSONAL HISTORY: Ex-smoker, quit smoking in 1967, he used to smoke a pack per day for 20 years. Alcohol up to 2 drinks a day. VACCINATIONS: Tetanus less than 10 years when he was given one. At the time he was given TDAP on 04/04/2016. He did get an annual flu shot. He has had a Pneumovax in the past. ALLERGIC TO BEE STINGS with local reaction and with PREDNISONE he does not feel well. MEDICATIONS: 1. Pravastatin 40 mg daily. 2. Aspirin 81 mg daily. 3. Glucophage 500 mg daily. 4. Metoprolol 25 b.i.d. 5. Lisinopril 10 mg daily. 6. Hydrochlorothiazide 12.5 daily. 7. Multivitamin daily. 8. Levaquin 500 mg daily. 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 He spends quite a bit of time living in [place]. FAMILY MEDICAL HISTORY: Father at the age of 93 years. Mother at the age of 71, she had significant arthritis with complications. The patient has had 2 brothers, one with history of coronary artery disease. All four sisters have [id number]-[id number]. They are carriers. The patient has had no children. REVIEW OF SYSTEMS: NEURO: Denies any headaches. Mild dizziness. No double vision, blurred vision. PSYCH: No anxiety. CARDIAC: Denies chest pain, angina, palpitation. RESPIRATORY: Denies shortness of breath, cough. GI: No nausea or vomiting. Denies any abdominal pain, diarrhea. Has constipation. : No symptoms of dysuria, hematuria. Does have mild incontinence. EXTREMITIES: Denies any edema. Does have pain in the right knee. CONSTITUTIONAL: No fever, did have chills. SKIN: No rashes. HEMATOLOGICAL: No anemia or bleeding. PHYSICAL EXAMINATION: A pleasant 80-year-old gentleman who appears flushed, diaphoretic and weak. Vital signs revealed at the time of ER visit patient's temperature was 98.8, pulse 134, respirations 28, blood pressure 125/62 with pulse ox 98% on room air. While I was evaluating the patient, the patient's blood pressure had gone down to 84/49 with a pulse of 126, pulse ox of 95% on 4-L. Patient given more IV fluids. Subsequently, his blood pressure has been in the 80s to 90s. No fever. Physical examination otherwise reveals HEENT normocephalic, has a laceration in the occipital area with no bleeding or drainage. Riki intact. Neck reveals decreased range of motion. No JVD. No carotid bruits. No nuchal rigidity. Pupils are reactive. Nostrils clear. Oral cavity dry. Ears reveal no drainage. CHEST EXAMINATION: Clear to auscultation. CARDIAC: Distant heart sounds. S1, S2 with no gallops. Tachycardic. Systolic murmur 2/6 left sternal border. ABDOMEN: Mildly protuberant. Mild diffuse tenderness in the upper abdomen, but no clear tenderness at Mcnamara's point. Bowel sounds are active. EXTREMITIES: Reveal trace edema at the ankles. NEUROLOGIC: Awake, alert, oriented though mildly lethargic. Moves both upper and lower extremities. LABORATORY ASSESSMENT: Chest x-ray which was unremarkable. VQ scan is low probability. Venous duplex of the legs did not reveal any DVT. EKG reveals sinus tachycardia with no acute changes. Chest x-ray no acute infiltrates. Urine revealed 2+ protein, small blood, 4 WBC's, negative nitrate, white count is 4100, hemoglobin 15.1, platelets 148. INR is normal. D-dimer 9.85, CO2 17, BUN 63, creatinine 1.6, glucose 118. Plasma lactic acid 4.5, bilirubin 2.6, AST 155, ALT 131, alkaline phosphatase 351. BNP 741, albumin 3.0. ASSESSMENT: 1. Septic shock, source of sepsis possibly ( ). 2. Hepatics lesions, possible malignancy. 3. Recent fall with closed head injury. 4. Diabetes mellitus. 5. History of hypertension. PLAN: The patient is admitted to the ICU. Will have the tube roller follow with the patient. The patient has been started on antibiotics for full coverage. The patient is also receiving IV fluids to help maintain his blood pressure. The patient does have evidence of renal failure related to both sepsis and dehydration. Patient's prognosis remains guarded. Condition discussed with the patient. He is requesting no CPR. Prognosis is guarded.
[2016-04-09 13:05] LABS: Glucose,Whole Blood 132 mg/dL (75-99)
[2016-04-09] MEDS: HYDROcodone/APAP 5-325MG 1 EACH TAB PO PRN (16:33)
[2016-04-09 21:32] LABS: Glucose,Whole Blood 129 mg/dL (75-99)
[2016-04-10] MEDS: PIPERACILLIN-TAZOBACTAM 3.375 GM in DEXTROSE/WATER 1 50ML.BAG IVPB SCH ×3 (00:12→15:50)
[2016-04-10 05:13] LABS: Basophils # (A) 0.1 k/uL (0-0.2); Basophils % (A) 0 %; CH 32.6; CHCM 33.6; Eosinophils # (A) 0.1 k/uL (0-0.7); Eosinophils % (A) 0 %; HCT 37.5 % (39.0-53.0); HDW 2.79; HGB 12.3 gm/dL (13.0-17.5); Luc # (Auto) 0.36; Luc % (Auto) 2; Lymphocytes # (A) 0.5 k/uL (1.0-4.8); Lymphocytes % (A) 3 %; MCH 31.8 pg (25.0-35.0); MCHC 32.7 g/dL (31.0-37.0); MCV 97.5 fL (80.0-100.0); Mean Platelet Volume 8.6; Monocytes # (A) 0.5 k/uL (0-1.0); Monocytes % (A) 3 %; Neutrophils # (A) 16.5 k/uL (1.3-7.7); Neutrophils % (A) 92 %; RBC 3.85 m/uL (4.30-5.90); RDW 14.9 % (11.5-15.5); WBC (Perox) 18.61
[2016-04-10 05:21] LABS: Calcium 7.6 mg/dL (8.4-10.2); Magnesium 2.8 mg/dL (1.6-2.3); Phosphorous 4.2 mg/dL (2.5-4.5); Potassium 3.7 mmol/L (3.5-5.1)
[2016-04-10] MEDS ORDERED: POTASSIUM CHLORIDE ER 20 MEQ TAB.ER PO SCH (06:00)
[2016-04-10 07:49] LABS: Glucose,Whole Blood 122 mg/dL (75-99)
[2016-04-10] MEDS ORDERED: FUROSEMIDE 10 MG/ML 4 ML VIAL IV STA (07:57)
--- NOTE | 2016-04-10 08:12 | XR ---
EXAMINATION TYPE: XR chest 1V DATE OF EXAM: 04/10/2016 6:47 AM COMPARISON: Prior chest x-ray April 2016 HISTORY: Recent fall, sternal pain TECHNIQUE: Single frontal view of the chest is obtained. FINDINGS: No significant interval change is evident. Patchy basilar density may reflect atelectasis. There are overlying cardiac leads and the patient is rotated. Apical pleural thickening is stable. E xam is expiratory. Interstitium is somewhat prominent. Cardiac mediastinal silhouette, pulmonary vasc ularity and sofya not significantly changed. No pneumothorax or pleural effusion. IMPRESSION: No significant interval change. Consider alternate imaging for increased sensitivity as indicated.
[2016-04-10] MEDS: ENOXAPARIN 30 MG/0.3 ML SYRINGE SQ SCH (08:27)
[2016-04-10] MEDS: PANTOPRAZOLE 40 MG/10 ML VIAL IV SCH (08:27)
[2016-04-10] MEDS ORDERED: ASPIRIN 81 MG CHEW PO SCH (09:00)
--- NOTE | 2016-04-10 09:18 | P.PN ---
Subjective This is a very pleasant 80-year-old gentleman The patient came in with primarily weakness and maybe some dehydration. Was found have elevated heart rate. Also one point had a lower blood pressure. The patient received a total of 4 L of IV fluid in the form of normal saline. Pressors were not used. Note that he had significantly abnormal blood work and I realize that the patient is developing acute kidney injury with progressive rise in his creatinine which is up to 2.4. The patient also has abnormalities in the liver function test and an ultrasound of the gallbladder was done and it showed No shadowing mobile gallstones or convincing ultrasound evidence for acute cholecystitis. Abnormal gallbladder wall thickening may be product of underlying liver disease. Metastatic disease needs to be considered knowing that there was numerous ALLERGIES ill-defined lesions scattered throughout the liver largest within the left lateral lobe measuring 6.5 x 7.5 cm in size and the largest on the right measuring 3.5 x 2.8 cm in size. The patient also had an extensive evaluation including a Doppler of the lower extremity that do not to be within normal, VQ scan that do not to be of a low probability, CAT scan of the brain the inside outside sales representative to be within normal, and a chest x-ray did not reveal any evidence of pneumonia. Urinalysis was positive for protein, +2 protein was identified, there was small amount of blood, occasional bacteria, minimal white cells and the cultures been negative. CPK levels were nonelevated. There was some minor troponin leak. The liver function tests remain abnormal. The patient was empirically covered with IV Zosyn. No change in mental status. The patient has history of diabetes mellitus, hypertension, hyperlipidemia, and prostate enlargement with possible prostate cancer and he has a Mililani score of 6 and he is status post TURP. He was recently involved in a fall and he sustained a closed head injury today had. His neurologic signs were within normal limits. He is known to have frequent urine checked infections and suspected to have prostatitis Objective - Vital Signs Vital signs: Vital Signs Temp 97.5 F L 04/10/16 08:00 Pulse 94 04/10/16 08:00 Resp 21 04/10/16 08:00 BP 151/75 04/10/16 08:00 Pulse Ox 97 04/10/16 08:00 Intake & Output 04/09/16 04/10/16 04/10/16 18:59 06:59 18:59 Intake Total 2011.5 632.5 160 Output Total 1245 1999 325 Balance 767.5 -1367.5 -165 Weight 104.5 kg 102.7 kg Intake: IV 100 0.9 at 100 100 Intake, IV Titration 1412.5 512.5 Amount Piperacillin-Tazobactam 3 87.5 62.5 .375 gm In Dextrose/Water 1 50ml.bag @ 12.5 mls/hr IVPB Q8HR [facility] Rx#: [id number] Sodium Chloride 0.9% 1, 1325 450 000 ml @ 100 mls/hr IV . Q10H [facility] Rx#:[id number] Oral 600 120 60 Output: Urine 1245 1999 325 Other: Voiding Method Indwelling Catheter Indwelling Catheter # Bowel Movements 1 - Exam Patient is lethargic, weak yet awake alert and conscious and following commands and answering questions appropriately.Head exam was generally normal. There was no scleral icterus or corneal arcus. Mucous membranes were moist. The patient has a scalp laceration over the posterior had and the areas dry and clean.Neck was supple and without jugular venous distension, thyromegaly, or carotid bruits. Carotids were easily palpable bilaterally. There was no adenopathy.Lungs were clear to auscultation and percussion, and with normal diaphragmatic excursion. No wheezes or rales were noted. Heart sounds are regular and there is a faint systolic ejection murmur grade 2/6 heard throughout the precordium. Examination of the abdomen shows some mild diffuse direct tenderness, no rebound tenderness, no guarding, no ascites, no hernias, no organomegaly.Examination of the extremities revealed easily palpable radial, femoral and pedal pulses. There was no cyanosis, clubbing or edema. - Labs CBC & Chem 7: 04/10/16 04:54 04/10/16 04:54 Labs: Abnormal Lab Results - Last 24 Hours (Table) 04/09/16 04/09/16 04/09/16 Range/Units 04:23 12:55 21:30 WBC (3.8-10.6) k/uL RBC (4.30-5.90) m/uL Hgb (13.0-17.5) gm/dL Hct (39.0-53.0) % Plt Count (150-450) k/uL Neutrophils # (1.3-7.7) k/uL Lymphocytes # (1.0-4.8) k/uL Chloride (98-107) mmol/L Carbon Dioxide (22-30) mmol/L BUN (9-20) mg/dL Creatinine (0.66-1.25) mg/dL Glucose (74-99) mg/dL POC Glucose (mg/dL) 132 H 129 H (75-99) mg/dL Calcium (8.4-10.2) mg/dL Magnesium (1.6-2.3) mg/dL Total Bilirubin 1.8 H (0.2-1.3) mg/dL Delta Bilirubin 1.3 H (0.0-0.2) mg/dL AST 209 H (17-59) U/L ALT 139 H (21-72) U/L Alkaline Phosphatase 199 H (38-126) U/L Total Protein 4.7 L (6.3-8.2) g/dL Albumin 2.0 L (3.5-5.0) g/dL 04/10/16 04/10/16 04/10/16 Range/Units 04:54 04:54 07:48 WBC 18.0 H (3.8-10.6) k/uL RBC 3.85 L (4.30-5.90) m/uL Hgb 12.3 L (13.0-17.5) gm/dL Hct 37.5 L (39.0-53.0) % Plt Count 144 L (150-450) k/uL Neutrophils # 16.5 H (1.3-7.7) k/uL Lymphocytes # 0.5 L (1.0-4.8) k/uL Chloride 109 H (98-107) mmol/L Carbon Dioxide 16 L (22-30) mmol/L BUN 69 H (9-20) mg/dL Creatinine 2.49 H (0.66-1.25) mg/dL Glucose 138 H (74-99) mg/dL POC Glucose (mg/dL) 122 H (75-99) mg/dL Calcium 7.6 L (8.4-10.2) mg/dL Magnesium 2.8 H (1.6-2.3) mg/dL Total Bilirubin (0.2-1.3) mg/dL Delta Bilirubin (0.0-0.2) mg/dL AST (17-59) U/L ALT (21-72) U/L Alkaline Phosphatase (38-126) U/L Total Protein (6.3-8.2) g/dL Albumin (3.5-5.0) g/dL Microbiology - Last 24 Hours (Table) 04/09/16 11:40 Gram Stain - Preliminary Sputum 04/08/16 19:49 Blood Culture - Preliminary Blood No Growth after 24 hours Assessment and Plan Plan: Assessment 1 dehydration along with lactic acidosis, rule out underlying sepsis and the patient was in stable 4 L of IV fluids. Currently is on no pressors. He is on empiric antibiotic coverage with IV Zosyn. All of the cultures of been negative 2 urine tract infection, recently treated with a course of Levaquin 500 mg by mouth daily 3 abnormal liver function tests with heterogeneous ill-defined liver lesions as evident on the ultrasound of the liver. Rule out metastatic disease involving the liver 4 recent fall with a closed head injury and scalp laceration 5 prostate cancer, history of with a Mililani score of 6 status post TURP 7 diabetes mellitus. 8 hypertension 9 hyperlipidemia 10 acute kidney injury, evolving 11 acute leukocytosis white cell count is up to 18 12 acute non-anion gap metabolic acidosis 13 troponin leak plan Continue with IV fluids and the patient is being resuscitated with normal saline at the rate of 100 mL an hour. Proceed with a CAT scan of the abdomen and pelvis. Unfortunately were not to be able to give him IV contrast and will limit this to oral contrast only. Neurosurgery consultation regards to his abdominal pain and discomfort and will follow-up on the CAT scan of the abdomen and pelvis results. Continued empiric antibiotic coverage with IV Zosyn. The urine output and the patient has a Whitehead catheter in place. No evidence of any obstructive uropathy at this point. The patient will be kept in ICU for further monitoring. We'll continue to follow.
[2016-04-10] MEDS ORDERED: IOHEXOL 350 MG/ML 25 ML BOTTLE (ORAL USE) PO PRN ×2 (09:19)
[2016-04-10 10:02] LABS: Amylase <30 U/L (30-110)
[2016-04-10 11:30] LABS: Glucose,Whole Blood 116 mg/dL (75-99)
[2016-04-10] MEDS: HYDROcodone/APAP 5-325MG 1 EACH TAB PO PRN ×2 (11:50→15:50)
[2016-04-10] MEDS ORDERED: LEVOFLOXACIN 750MG-D5W PMX 750 MG in DEXTROSE/WATER 1 150ML.BAG IVPB SCH (16:00)
[2016-04-10] MEDS: HYDROmorphone 1 MG/ML 1 ML SYRINGE IVP PRN ×2 (17:18→20:07)
[2016-04-10 17:48] LABS: Glucose,Whole Blood 171 mg/dL (75-99)
--- NOTE | 2016-04-10 17:51 | P.GSCN ---
History of Present Illness Consult date: 04/10/16 Reason for Consult: Abdominal pain History of present illness: Patient was hospitalized after presented to the hospital with fevers and chills associated with hypoxia and hypotension. He has elevated liver enzymes. He had an elevated lactic acid as well. An ultrasound of the liver was performed which revealed numerous liver lesions measuring up to 7 cm. His pain has become more progressive. Initially was controlled with oral pain medications. He actually has been on a diet but has not been taking in much. No vomiting. History of prostate cancer. Kidney function and leukocytosis are worsening. Neurologically the patient has been more confused. The patient has made it very clear that he wanted palliative care and did not want any intervention or any additional testing earlier this morning. Review of Systems ROS unobtainable: due to mental status Past Medical History Past Medical History: Diabetes Mellitus, Hyperlipidemia, Hypertension Additional Past Medical History / Comment(s): Previous history of a cardiac murmur History of Any Multi-Drug Resistant Organisms: None Reported Past Surgical History: Prostate Surgery, Tonsillectomy Additional Past Surgical History / Comment(s): cataract surgery in 2010, colonscopy. TURP Past Anesthesia/Blood Transfusion Reactions: No Reported Reaction Past Psychological History: No Psychological Hx Reported Additional Psychological History / Comment(s): Pt resides alone part of the time. His domestic partner stays with his at times. He uses a cane as needed. He drives. Smoking Status: Former smoker Past Alcohol Use History: None Reported Additional Past Alcohol Use History / Comment(s): Pt started smoking in 1958 and quit in 1967. He drinks daily-one or two drinks a day. Past Drug Use History: None Reported - Past Family History Father Additional Family Medical History / Comment(s): heart disease Medications and Allergies Home Medications Medication Instructions Recorded Confirmed Type Aspirin 81 mg PO DAILY 04/21/14 04/08/16 History metFORMIN HCL [Glucophage] 500 mg PO DAILY 04/21/14 04/08/16 History Lisinopril [Zestril] 10 mg PO DAILY 11/28/14 04/08/16 History Hydrochlorothiazide 12.5 mg PO DAILY 04/04/16 04/08/16 History Pravastatin Sodium [Pravachol] 40 mg PO DAILY 04/04/16 04/08/16 History HYDROcodone/APAP 5-325MG [[place] 1 tab PO Q4H PRN 04/08/16 04/08/16 History 5-325] Allergies Allergy/AdvReac Type Severity Reaction Status Date / Time No Known Allergies Allergy Verified 04/08/16 16:24 Surgical - Exam Vital Signs Temp Pulse Resp BP Pulse Ox 98.8 F 134 H 28 H 125/62 98 04/08/16 15:28 04/08/16 15:28 04/08/16 15:28 04/08/16 15:28 04/08/16 15:28 Physical exam: General: Elderly white male who appears to be short of breath, just recently given IV Dilaudid and is lethargic HEENT: Normocephalic, sclerae nonicteric Abdomen: Distended, diffuse tenderness with guarding Extremities: Somewhat mottled upper extremities Neuro: Lethargic Results - Labs 04/10/16 04:54 04/10/16 13:07 Abnormal Lab Results - Last 24 Hours (Table) 04/09/16 04/10/16 04/10/16 Range/Units 21:30 04:54 04:54 WBC 18.0 H (3.8-10.6) k/uL RBC 3.85 L (4.30-5.90) m/uL Hgb 12.3 L (13.0-17.5) gm/dL Hct 37.5 L (39.0-53.0) % Plt Count 144 L (150-450) k/uL Neutrophils # 16.5 H (1.3-7.7) k/uL Lymphocytes # 0.5 L (1.0-4.8) k/uL Chloride 109 H (98-107) mmol/L Carbon Dioxide 16 L (22-30) mmol/L BUN 69 H (9-20) mg/dL Creatinine 2.49 H (0.66-1.25) mg/dL Glucose 138 H (74-99) mg/dL POC Glucose (mg/dL) 129 H (75-99) mg/dL Calcium 7.6 L (8.4-10.2) mg/dL Magnesium 2.8 H (1.6-2.3) mg/dL Amylase (30-110) U/L 04/10/16 04/10/16 04/10/16 Range/Units 04:54 07:48 11:28 WBC (3.8-10.6) k/uL RBC (4.30-5.90) m/uL Hgb (13.0-17.5) gm/dL Hct (39.0-53.0) % Plt Count (150-450) k/uL Neutrophils # (1.3-7.7) k/uL Lymphocytes # (1.0-4.8) k/uL Chloride (98-107) mmol/L Carbon Dioxide (22-30) mmol/L BUN (9-20) mg/dL Creatinine (0.66-1.25) mg/dL Glucose (74-99) mg/dL POC Glucose (mg/dL) 122 H 116 H (75-99) mg/dL Calcium (8.4-10.2) mg/dL Magnesium (1.6-2.3) mg/dL Amylase <30 L (30-110) U/L Microbiology - Last 24 Hours (Table) 04/09/16 11:40 Gram Stain - Preliminary Sputum 04/08/16 19:49 Blood Culture - Preliminary Blood No Growth after 24 hours Diabetes panel 04/10/16 04/10/16 Range/Units 04:54 13:07 Sodium 137 (137-145) mmol/L Potassium 3.7 3.8 (3.5-5.1) mmol/L Chloride 109 H (98-107) mmol/L Carbon Dioxide 16 L (22-30) mmol/L BUN 69 H (9-20) mg/dL Creatinine 2.49 H (0.66-1.25) mg/dL Glucose 138 H (74-99) mg/dL Calcium 7.6 L (8.4-10.2) mg/dL Calcium panel 04/10/16 Range/Units 04:54 Calcium 7.6 L (8.4-10.2) mg/dL Phosphorus 4.2 (2.5-4.5) mg/dL Pituitary panel 04/10/16 04/10/16 Range/Units 04:54 13:07 Sodium 137 (137-145) mmol/L Potassium 3.7 3.8 (3.5-5.1) mmol/L Chloride 109 H (98-107) mmol/L Carbon Dioxide 16 L (22-30) mmol/L BUN 69 H (9-20) mg/dL Creatinine 2.49 H (0.66-1.25) mg/dL Glucose 138 H (74-99) mg/dL Calcium 7.6 L (8.4-10.2) mg/dL Adrenal panel 04/10/16 04/10/16 Range/Units 04:54 13:07 Sodium 137 (137-145) mmol/L Potassium 3.7 3.8 (3.5-5.1) mmol/L Chloride 109 H (98-107) mmol/L Carbon Dioxide 16 L (22-30) mmol/L BUN 69 H (9-20) mg/dL Creatinine 2.49 H (0.66-1.25) mg/dL Glucose 138 H (74-99) mg/dL Calcium 7.6 L (8.4-10.2) mg/dL Assessment and Plan (1) Abdominal pain Narrative/Plan: Patient with evidence of progressive sepsis. Patient's liver lesions by ultrasound and diffuse abdominal pain suggest the possibility of an underlying GI malignancy with localize complications possibly even perforation. Patient is not interested in any further evaluation or intervention at this time. The serious nature of his current condition was discussed with the patient's girlfriend Madelin. We'll follow with you. Status: Acute
[2016-04-10] MEDS ORDERED: VANCOMYCIN 1,500 MG in SODIUM CHLORIDE 0.9% 250 ML IVPB SCH (18:00)
--- NOTE | 2016-04-10 18:36 | PN ---
CHIEF COMPLAINT: Re-evaluation. HISTORY OF PRESENT ILLNESS: This is a 80-year-old who was admitted to the hospital with sepsis and hypotension; source is not clear; possibility of cholecystitis not ruled out. Patient also has significant liver masses. He is feeling somewhat better. His blood pressure has improved. REVIEW OF SYSTEMS: NEURO: Denies any headaches, dizziness. PSYCH: No anxiety. CARDIAC: Denies chest pain, angina, palpitation. RESPIRATORY: No shortness breath, cough, hemoptysis. GI: No nausea, vomiting. Decreased appetite. Denies abdominal pain. No diarrhea. No bowel movement. : No symptoms of dysuria or hematuria. Has IDC. EXTREMITIES: Knee pain. CONSTITUTIONAL: No fever or chills. PHYSICAL EXAMINATION: Pleasant 80-year-old who appears better than yesterday. He still appears ill. VITAL SIGNS: Afebrile, pulse 99, respiration 24, blood pressure 115/64, pulse ox 96%. HEENT: Normocephalic. NECK: No JVD. CHEST: Clear to auscultation. CARDIAC: Normal S1, S2 with no gallops. Systolic murmur 2/6, left sternal border. ABDOMEN: Mild tenderness in the epigastric area. Bowel sounds are active. Extremities reveal 1 to 2+ edema. Neurologically awake, alert, oriented, with well-coordinated movements in both upper extremities. LABORATORY ASSESSMENT: White count of 16.1, hemoglobin 11.7. CO2 content 17. BUN 66, creatinine 2.47. Bilirubin down to 1.8. Alkaline phosphatase 199. AST 209 and ALT 139. Lactic acid was 4.1 during the night. Troponins borderline. ASSESSMENT: 1. Sepsis with septic shock; source unclear; possibly biliary. 2. Acute renal failure. 3. Recent fall and closed head injury. PLAN: Continue present medical regimen. Patient's condition discussed with the patient. Prognosis guarded. Patient's vancomycin will be discontinued. Patient is on Zosyn and Levaquin. Once the patient's renal status stabilizes or improves, the patient will have a CT scan of the abdomen to further define his hepatic status.
--- NOTE | 2016-04-10 19:19 | CT ---
EXAMINATION TYPE: CT abdomen pelvis wo con DATE OF EXAM: 04/10/2016 7:08 PM COMPARISON: NONE HISTORY: abdominal pain and liver mass. CT DLP: 1173 mGycm FINDINGS: LUNG BASES: No evidence for nodule. Basilar atelectasis and small effusions. LIVER/GB: The gallbladder is unremarkable. Multiple hepatic lesions are noted of the largest of which measures approximately 6.6 cm and is seen within the left hepatic lobe. Additional smaller lesions a re noted. Findings are suspicious for metastatic disease. PANCREAS: No pancreatic mass identified. No inflammatory process seen. SPLEEN: No evidence for splenomegaly. No intrasplenic lesions seen. ADRENALS: No adrenal nodules identified. No evidence for thickening. KIDNEYS: No evidence for renal mass. No nephrolithiasis. No hydronephrosis. Whitehead balloon catheter is in place. BOWEL: Appendix has a normal appearance. No evidence of bowel obstruction. No inflammatory process. Lymph nodes: No evidence for adenopathy greater than 1 cm. Abdominal aorta: 3.2 cm abdominal aortic aneurysm. 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 Ectasia of the left common iliac artery. Genital organs: No significant ab normality. Other: No significant abnormality. IMPRESSION: 1. MULTIPLE HEPATIC LESIONS SUSPICIOUS FOR METASTATIC DISEASE SITE INDETERMINATE. 2. 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 3. 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 4. BASILAR ATELECTASIS AND SMALL PLEURAL EFFUSIONS.
[2016-04-10 19:20] LABS: Hemoglobin A1C 6.2 % (4.2-6.1)
[2016-04-10] MEDS ORDERED: SCOPOLAMINE 1.5MG/72HR PATCH TRANSDERM PRN (19:40)
[2016-04-10] MEDS ORDERED: ARTIFICIAL TEARS-HYPROMELLOSE DROPS 15 ML BTL BOTH EYES PRN (19:40)
[2016-04-10] MEDS ORDERED: INSULIN LISPRO (humaLOG) 300 UNIT/3 ML VIAL SQ SCH (21:00)
[2016-04-11 01:14] VITALS: TEMP 98.2
[2016-04-11] MEDS: HYDROcodone/APAP 5-325MG 1 EACH TAB PO PRN ×2 (02:01→05:41)
[2016-04-11 04:46] VITALS: PULSE 90
--- NOTE | 2016-04-11 07:41 | PN ---
CHIEF COMPLAINT: Re-evaluation. HISTORY OF PRESENT ILLNESS: This is a 80-year-old gentleman who appears fairly sick. He is, however, alert. The patient has generalized malaise. He does have decreased appetite. The patient does have some abdominal pain. He says the pain is only when we palpate it. Otherwise, denies any pain. No nausea, vomiting. He did have some significant pain later in the day. Patient was given some Dilaudid at the time. Prior to that, Dr. Perez had ordered a CAT scan of the abdomen, which the patient had rejected. Dr. Contreras saw the patient and he was concerned that the patient may have a perforated bowel. The patient has; however, declined any CAT scans. I came back and reviewed with the patient the importance of doing it. The patient clearly does not want anything done; however, I told him to establish that he has a problem of significance which could be terminal, we would do the CAT scan without any harm to him and without any discomfort to him. The patient after that agreed to that. Patient did have a CAT scan of the abdomen without contrast done. The patient has evidence of significant metastatic disease to the liver. No other perforations or any other acute inflammatory process in the abdomen. The patient has clearly requested no aggressive measures. His POA has also agreed on that and we will basically stop all treatments except for comfort measure. The patient has no children. He does have siblings and patient's electric shipyard operator has been in touch with them. REVIEW OF SYSTEMS: This morning patient had denied any headaches, dizziness. PSYCH: Resigned to poor prognostic status. According to his girlfriend, the patient for the past few months has talked about it because he is functionally getting weaker. CHEST: Denies shortness of breath, cough. GI: No nausea, vomiting, decreased appetite, abdominal tenderness on palpation only. Did have a bowel movement yesterday. EXTREMITIES: Some pain. CONSTITUTIONAL: No fever or chills. PHYSICAL EXAMINATION: A pleasant 80-year-old who appears sick. Vital signs reveal temperature 97.5, pulse 94, respirations 21, blood pressure 151/75, pulse ox of 97% on room air. Patient's pulse rate is about 113 to 117, blood pressure 161/66, pulse ox of 95% on room air. After getting some Dilaudid, his blood pressure was down 90/44. Otherwise, no JVD. Chest is clear to auscultation with mild decreased air flow at the bases. CARDIAC: Normal S1, S2 with no gallops. Systolic murmur 2/6 left sternal border. Abdomen is tender in the epigastric area. Bowel sounds are active. Extremities reveal edema. Neurologically awake, alert, oriented, well-coordinated movements upper extremities. LABORATORY ASSESSMENT: White count 18,000, hemoglobin 12.3, platelet 144. Electrolytes were CO2 content of 16, BUN 69, creatinine 2.49, glucose 138, albumin 2.8. Lipase and amylase are normal. ASSESSMENT: 1. 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 2. Acute underlying renal failure. 3. Diabetes mellitus. 4. Mild thrombocytopenia. 5. Moderate nourished status. PLAN: Patient at present has poor prognosis and will be made comfort care. I have discussed with patient and his electric shipyard operator and his POA. Prognosis remains poor.
[2016-04-11 08:07] VITALS: BP 79/45; RESP 21
--- NOTE | 2016-04-11 09:16 | P.PN ---
Subjective This is a very pleasant 80-year-old gentleman The patient came in with primarily weakness and maybe some dehydration. Was found have elevated heart rate. Also one point had a lower blood pressure. The patient received a total of 4 L of IV fluid in the form of normal saline. Pressors were not used. Note that he had significantly abnormal blood work and I realize that the patient is developing acute kidney injury with progressive rise in his creatinine which is up to 2.4. The patient also has abnormalities in the liver function test and an ultrasound of the gallbladder was done and it showed No shadowing mobile gallstones or convincing ultrasound evidence for acute cholecystitis. Abnormal gallbladder wall thickening may be product of underlying liver disease. Metastatic disease needs to be considered knowing that there was numerous ALLERGIES ill-defined lesions scattered throughout the liver largest within the left lateral lobe measuring 6.5 x 7.5 cm in size and the largest on the right measuring 3.5 x 2.8 cm in size. The patient also had an extensive evaluation including a Doppler of the lower extremity that do not to be within normal, VQ scan that do not to be of a low probability, CAT scan of the brain the bowl turner to be within normal, and a chest x-ray did not reveal any evidence of pneumonia. Urinalysis was positive for protein, +2 protein was identified, there was small amount of blood, occasional bacteria, minimal white cells and the cultures been negative. CPK levels were nonelevated. There was some minor troponin leak. The liver function tests remain abnormal. The patient was empirically covered with IV Zosyn. No change in mental status. The patient has history of diabetes mellitus, hypertension, hyperlipidemia, and prostate enlargement with possible prostate cancer and he has a Piasa score of 6 and he is status post TURP. He was recently involved in a fall and he sustained a closed head injury today had. His neurologic signs were within normal limits. He is known to have frequent urine checked infections and suspected to have prostatitis On 04/11/2016, the patient is being seen in follow-up. The patient is still significantly weak. No change in mental status. No hypotension. No pressors at this point. Based on the above-mentioned complications, I ordered a CAT scan of the abdomen and pelvis that was done without contrast and the patient was found to have multiple hepatic lesions suspicious for metastatic disease of an indeterminate primary. 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 His renal function remains quite impaired with a creatinine of 2.4. The patient has made decision of not proceeding with any further care especially with this new findings on the CAT scan of the abdomen and pelvis which is just metastatic disease involving the liver. Dr. Purcell was also involved in the discussion and the plan for now is to proceed with comfort care/hospice. The patient will be moved out of the intensive care unit. Objective - Vital Signs Vital signs: Vital Signs Temp 98.2 F 04/10/16 20:00 Pulse 90 04/11/16 08:00 Resp 21 04/11/16 08:00 BP 79/45 04/11/16 08:00 Pulse Ox 96 04/11/16 08:00 Intake & Output 04/10/16 04/11/16 04/11/16 18:59 06:59 18:59 Intake Total 1122.5 1362.5 200 Output Total 4050 137 6 Balance -2927.5 1225.5 194 Intake: IV 750 1150 200 0.9 at 717 293 9756 200 Intake, IV Titration 87.5 12.5 Amount Piperacillin-Tazobactam 3 87.5 12.5 .375 gm In Dextrose/Water 1 50ml.bag @ 12.5 mls/hr IVPB Q8HR [facility] Rx#: [id number] Oral 285 200 Output: Urine 4050 137 6 Other: Voiding Method Indwelling Catheter Indwelling Catheter Indwelling Catheter - Exam Patient is lethargic, weak yet awake alert and conscious and following commands and answering questions appropriately.Head exam was generally normal. There was no scleral icterus or corneal arcus. Mucous membranes were moist. The patient has a scalp laceration over the posterior had and the areas dry and clean.Neck was supple and without jugular venous distension, thyromegaly, or carotid bruits. Carotids were easily palpable bilaterally. There was no adenopathy.Lungs were clear to auscultation and percussion, and with normal diaphragmatic excursion. No wheezes or rales were noted. Heart sounds are regular and there is a faint systolic ejection murmur grade 2/6 heard throughout the precordium. Examination of the abdomen shows some mild diffuse direct tenderness, no rebound tenderness, no guarding, no ascites, no hernias, no organomegaly.Examination of the extremities revealed easily palpable radial, femoral and pedal pulses. There was no cyanosis, clubbing or edema. - Labs CBC & Chem 7: 04/10/16 04:54 04/10/16 13:07 Labs: Abnormal Lab Results - Last 24 Hours (Table) 04/10/16 04/10/16 04/10/16 Range/Units 04:54 04:54 11:28 POC Glucose (mg/dL) 116 H (75-99) mg/dL Hemoglobin A1c 6.2 H (4.2-6.1) % Amylase <30 L (30-110) U/L 04/10/16 Range/Units 17:46 POC Glucose (mg/dL) 171 H (75-99) mg/dL Hemoglobin A1c (4.2-6.1) % Amylase (30-110) U/L Microbiology - Last 24 Hours (Table) 04/08/16 19:49 Blood Culture - Preliminary Blood No Growth after 48 hours Assessment and Plan Plan: Assessment 1 dehydration along with lactic acidosis, rule out underlying sepsis and the patient was in stable 4 L of IV fluids. Currently is on no pressors. He is on empiric antibiotic coverage with IV Zosyn. All of the cultures of been negative. Further investigation including a CAT scan of the abdomen and pelvis showed evidence of metastatic disease involving the liver of an undetermined primary. The patient has refused to undergo any further workup regarding his abnormalities and he is opted for comfort care. Discussions were done with the primary care physician and for now the patient will be transferred out of the intensive care unit to proceed with comfort care/hospice. 2 urine tract infection, recently treated with a course of Levaquin 500 mg by mouth daily 3 abnormal liver function tests with heterogeneous ill-defined liver lesions as evident on the ultrasound of the liver. Rule out metastatic disease involving the liver. Please refer to the results of the CAT scan of the abdomen and pelvis that was done yesterday. 4 recent fall with a closed head injury and scalp laceration 5 prostate cancer, history of with a Piasa score of 6 status post TURP 7 diabetes mellitus. 8 hypertension 9 hyperlipidemia 10 acute kidney injury, evolving 11 acute leukocytosis white cell count is up to 18 12 acute non-anion gap metabolic acidosis 13 troponin leak plan We'll move the patient out of the intensive care unit. Proceed with comfort care/hospice per patient's wishes. Prognosis unfortunately is very poor.
[2016-04-11] MEDS: HYDROmorphone 1 MG/ML 1 ML SYRINGE IVP PRN ×3 (09:27→17:31)
--- NOTE | 2016-04-11 15:02 | CDI ---
In responding to this query, please exercise your independent professional judgment. The [facility] Coding Staff and Clinical Documentation Specialists appreciate your assistance in clarifying documentation, maintaining compliance with coding guidelines, accurately documenting patients condition and capturing severity of illness. The fact that a question is asked does not imply that any particular answer is desired or expected. Communication forms are a method of clarifying documentation and are not made part of the Legal Health Record. Thank you in advance for your clarification. Last Revision, January 2015 Carlos Lunsford [address] [place] [address] Documentation Clarification Form Date: 04/11/2016 2:48:00 PM From: Nany Lang Admit Date: 04/08/2016 6:05:00 PM Patient Name: Duane Marie Visit Number: [id number] Dr. Amol Purcell On 04/09/2016 you documented 'sepsis with septic shock, source unclear, possibly biliary'. On 04/10/2016 you documented 'metastatic disease to the liver with primary unknown '. No mention of sepsis or shock. History/Risk factors Diabetes Mellitus Frequent UTI's Clinical Indicators: Lab findings on admission: wbc 4.1, lactic acid 4.5 Acute Renal Failure documented with bun 63, cr 1.60, gfr 42 on presentation Vital Signs on presentation: temp 98.8, hr 134, rr 28, bp 125/62, sats 98% room air UA and Urine Culture both negative but had recent treatment of Levaquin Treatment: IV fluid bolus IV Levaquin, IV Flagyl, IV Vancomycin ICU monitoring In your professional opinion, can you please clarify? Sepsis with Septic Shock Ruled In? (please specify cause if known) Sepsis with Septic Shock Ruled Out? Other (please specify) Unable to determine Please document in your progress notes and discharge summary in order to capture severity of illness and risk of mortality. Include clinical findings that support your diagnosis. FYI: Press F11 to launch patient chart. Place X here if this finding has no clinical significance, is not applicable or if you are not able to provide any additional documentation. SRIKANTH
[2016-04-12] MEDS: HYDROmorphone 1 MG/ML 1 ML SYRINGE IVP PRN ×8 (03:07→21:57)
--- NOTE | 2016-04-12 05:13 | PN ---
CHIEF COMPLAINT: Re-evaluation. HISTORY OF PRESENT ILLNESS: This is a 80-year-old gentleman who was admitted to the hospital with sudden onset of hypertension, tachycardia and hypoxia. The patient's condition was stabilized. The patient's further evaluation reveals he has got multiple nodules in the liver suspicious of malignancy. The patient has elected comfort care only. The patient understands prognosis is poor despite not having any tissue diagnosis. It appears to be highly suspicious of malignancy. These are patient's wishes and due to patient's critical illness, we did agree with that and discontinued patient's medications. Patient asked to be on supportive comfort care. His pain is controlled with medications. He has abdominal pain. He has generalized malaise. REVIEW OF SYSTEMS: NEURO: No headaches, dizziness. PSYCH: Some calmness about him. CARDIAC: No chest pain. RESPIRATORY: No shortness of breath. GI: No nausea, vomiting. Poor appetite. Abdominal pain only with palpation. EXTREMITIES: No pain. CONSTITUTIONAL: No fever. PHYSICAL EXAMINATION: A 80-year-old gentleman who appears ill. Vital signs reveal blood pressure was in the 77 to 100 range with pulse rate in the 90s, respirations 16, 17, 22, pulse ox 94%. Chest is clear to auscultation with decreased air flow. ABDOMEN: Tender to palpation. Bowel sounds active. Extremities revealed edema, ASSESSMENT: 1. Hepatic lesions suspicious of metastatic disease. 2. Markedly decreased debility of functional status. PLAN: The patient will be comfort care, Dilaudid as needed for pain. Patient's prognosis guarded. The patient will be referred to hospice. 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
--- NOTE | 2016-04-12 23:08 | PN ---
CHIEF COMPLAINT: Re-evaluation. HISTORY OF PRESENT ILLNESS: This 80-year-old was admitted to the hospital with a shock state. The patient was noted to have evidence of metastatic disease to the liver. The patient's fever was probably related to tumor fever. The patient's general condition is worsening. He has abdominal pain which is controlled with medication. The patient is sleeping most of the time. He did have an episode last night of severe anxiety. Patient's med care manager is at the bedside. She is requesting that the patient be just given medication to end it all. However, I explained to her that all we can do is control the pain and let nature take its course. The patient is failing rapidly. Life expectancy is a few days. The patient is planned for transfer to a nursing facility under hospice services. Patient is, as mentioned above, comfortable. Denies any pain. He does have generalized malaise. ASSESSMENT: 1. Metastatic liver disease. 2. End of life status. 3. Multiple comorbid conditions such as hypertension and diabetes. PLAN: Comfort care.
[2016-04-13] MEDS: HYDROmorphone 1 MG/ML 1 ML SYRINGE IVP PRN ×4 (00:18→10:13)
--- NOTE | 2016-05-07 11:23 | P.DS ---
Providers Date of admission: 04/08/16 18:05 Attending physician: Amol Purcell Consults: 04/10/16 07:54 Consult Physician Urgent Consulting Provider: Gabriel Contreras Reason/Comments: mary Do you want consulting provider notified?: Yes Primary care physician: Amol Purcell Hospital Course: History of present illness: This 80-year-old gentleman was admitted to the hospital following discharge earlier in the day. The patient had been transferred to nursing facility for rehab. Patient's vitals were stable at the time of discharge from the hospital as well as at the time of the arrival at the nursing facility. 3 hours later the patient suddenly became short of breath hypotensive and diaphoretic. Patient's prior to the emergency room here. Fluid resuscitation and patient noted to be hypotensive . Suspected to have also a possibility of pulmonary embolism. The patient was started also on anticoagulation. A VQ scan was low probability. The patient also had new elevated liver enzymes. There was no suggestion of cholecystitis. Ultrasound did show multiple hepatic lesions suspicious of metastatic disease patient has a previous history of carcinoma of the prostate. He was a Parsons 6 and an incidental 2. The patient at the last hospital stay prior to discharge had run fevers with negative cultures. He was continued on Levaquin at the nursing facility for a presumed urinary tract infection possible prostatitis which he has had recurrently. Patient was admitted to ICU for hemodynamic support. Patient was seen by senior storage engineer and pulmonary physician. The patient had declined any workup for the hepatic lesions. Including refusal to have a CAT scan. After further discussion he did agree to that. A CAT scan again confirmed multiple lesions highly suspicious for malignancy. The patient was very clear on his directives. He strongly recommended Comfort Care only. Patient in view of this was transferred to the [facility], surgical floor. Made comfortable with medications and referred to hospice. Patient had continued decline. His intake was none. The patient did have acute renal failure due to sepsis, septic shock, and ATN presumed and dehydration. He also had elevated liver enzymes with an AST of 155, AST 131, alkaline phosphatase 351. Troponin borderline at 0.035 felt to be secondary to the hypotensive septic shock. She did have lactic acidosis patient does have history of diabetes mellitus with mildly elevated blood sugars which were controlled with insulin. Again due to patient's declining health and his directives patient made comfortable with narcotics and antianxiety medications Final diagnosis to include 1. Sepsis and septic shock presents PROBABLY biliary tract. 2. Multiple hepatic lesions probably malignancy of unknown primary. 3. History of carcinoma the prostate 4. Diabetes mellitus 5. Mild anemia 6. Acute renal failure secondary to ATN and hypotension and dehydration. Plan: Transfer to hospice for comfort care and end-of-life management Patient Condition at Discharge: Serious Plan - Discharge Summary New Discharge Prescriptions: HYDROmorphone [Dilaudid] 1 mg PO Q3H PRN #30 ml PRN Reason: Pain LORazepam ORAL CONC [Ativan Intensol] 1 mg PO DIRECTED #30 ml fentaNYL 12MCG/HR PATCH [Duragesic 12MCG/HR] 1 patch TRANSDERM Q72H #5 patch Discharge Medication List HYDROmorphone [Dilaudid] 1 mg PO Q3H PRN #30 ml 04/12/16 [Rx] LORazepam ORAL CONC [Ativan Intensol] 1 mg PO DIRECTED #30 ml 04/12/16 [Rx] Scopolamine 1.5MG/72Hr Patch [TransDerm Scop] 1 patch TRANSDERM Q72H PRN #0 patch 04/12/16 [Rx] fentaNYL 12MCG/HR PATCH [Duragesic 12MCG/HR] 1 patch TRANSDERM Q72H #5 patch 02/16 [Rx] Follow up Appointment(s)/Referral(s): Amol Purcell MD [Primary Care Provider] - 1-2 days Discharge Disposition: TRANSFER TO SNF/ECF
== END 2016-04-13 12:16 | disposition hospice, inpatient (51) | DRG 435 ==
LOC: EC 14:59 → 6ICU 18:05 → 5ONC 04-11 09:42
PROVIDERS: ADMIT Internal Medicine; ATTEND Internal Medicine
PROC: 0T9B70Z Drainage of Bladder with Drainage Device, Via Natural or Artificial Opening (ICD-10-PCS; principal; 2016-04-08)
DX: C78.7 Secondary malignant neoplasm of liver and intrahepatic bile duct (principal); A41.9 Sepsis, unspecified organism; N17.0 Acute kidney failure with tubular necrosis; R65.21 Severe sepsis with septic shock; J90 Pleural effusion, not elsewhere classified; E87.2 Acidosis; N39.0 Urinary tract infection, site not specified; D69.6 Thrombocytopenia, unspecified; E86.0 Dehydration; C80.1 Malignant (primary) neoplasm, unspecified; Z51.5 Encounter for palliative care; Z66 Do not resuscitate; E11.9 Type 2 diabetes mellitus without complications; I10 Essential (primary) hypertension; E78.5 Hyperlipidemia, unspecified; R09.02 Hypoxemia; K57.30 Diverticulosis of large intestine without perforation or abscess without bleeding; F41.9 Anxiety disorder, unspecified; I71.4 Abdominal aortic aneurysm, without rupture; D72.829 Elevated white blood cell count, unspecified; R41.0 Disorientation, unspecified; S01.01XD Laceration without foreign body of scalp, subsequent encounter; R01.1 Cardiac murmur, unspecified; R07.2 Precordial pain; R74.8 Abnormal levels of other serum enzymes; R06.02 Shortness of breath; D64.9 Anemia, unspecified; M25.561 Pain in right knee; R00.0 Tachycardia, unspecified; R53.1 Weakness; R32 Unspecified urinary incontinence; K59.00 Constipation, unspecified; Z98.49 Cataract extraction status, unspecified eye; Z90.79 Acquired absence of other genital organ(s); Z85.46 Personal history of malignant neoplasm of prostate; Z82.49 Family history of ischemic heart disease and other diseases of the circulatory system; Z79.82 Long term (current) use of aspirin; Z87.891 Personal history of nicotine dependence; Z86.79 Personal history of other diseases of the circulatory system; Z87.01 Personal history of pneumonia (recurrent); Z79.2 Long term (current) use of antibiotics; Z79.84 Long term (current) use of oral hypoglycemic drugs; Z79.899 Other long term (current) drug therapy; Z87.440 Personal history of urinary (tract) infections; Z86.19 Personal history of other infectious and parasitic diseases; Z87.19 Personal history of other diseases of the digestive system; Z91.030 Bee allergy status; Z91.81 History of falling; Z79.891 Long term (current) use of opiate analgesic; Z87.438 Personal history of other diseases of male genital organs
CPT/HCPCS: 36415; 70450; 71010; 74176; 76705; 78582; 80048; 80053; 80076; 81001; 82150; 82533; 82550; 82553; 83036; 83605; 83690; 83735; 83880; 84100; 84132; 84484; 85025; 85379; 85610; 85730; 87040; 87070; 87086; 87205; 87502; 93005; 93965; 93970; 94640; 96361; 96365; 96375; 99291

== ENCOUNTER 2016-04-13 12:24 | Inpatient (IN) | payer OTHER ==
[2016-04-13 13:01] VITALS: BMI 31.9
[2016-04-13] MEDS: HYDROmorphone 1 MG/ML 1 ML SYRINGE IVP PRN ×3 (13:13→23:45)
[2016-04-13] MEDS: LORazepam ORAL CONC 60 MG/30 ML BOTTLE PO PRN (16:16)
[2016-04-14] MEDS: LORazepam ORAL CONC 60 MG/30 ML BOTTLE PO PRN ×4 (02:48→22:12)
--- NOTE | 2016-04-14 09:39 | PN ---
DATE OF SERVICE: 04/13/2016. CHIEF COMPLAINT: Re-evaluation. HISTORY OF PRESENT ILLNESS: This is a 80-year-old who has metastatic disease to the liver. The patient's status is poor and he is terminal. The patient is very lethargic, barely arousable. His cloud systems administrator is sitting at the bedside. The patient is still warm, no mottling. Lung [place] reveal no rhonchi. Respirations not rattly. ASSESSMENT: Metastatic disease to the liver, primary unknown. PLAN: Comfort care. Hospice is opening the case up today. Patient's prognosis remains poor. Condition discussed with the cloud systems administrator and comforted. Prognosis very poor.
[2016-04-14] MEDS: HYDROmorphone 1 MG/ML 1 ML SYRINGE IVP PRN ×2 (12:08→16:13)
[2016-04-15] MEDS: HYDROmorphone 1 MG/ML 1 ML SYRINGE IVP PRN ×5 (00:12→18:02)
[2016-04-15] MEDS: LORazepam ORAL CONC 60 MG/30 ML BOTTLE PO PRN ×2 (03:01→10:01)
[2016-04-15] MEDS: LORazepam 2 MG/ML SYRINGE IV PRN ×3 (11:59→21:12)
[2016-04-16] MEDS: HYDROmorphone 1 MG/ML 1 ML SYRINGE IVP PRN ×3 (00:28→08:12)
[2016-04-16] MEDS: LORazepam 2 MG/ML SYRINGE IV PRN ×2 (02:39→10:24)
[2016-04-16] MEDS ORDERED: HYDROmorphone (PF) 50 MG in SODIUM CHLORIDE 0.9% 245 ML IV SCH (12:15)
--- NOTE | 2016-05-07 11:25 | P.DS ---
Providers Date of admission: 04/13/16 12:24 Attending physician: Amol Purcell Primary care physician: Amol Purcell Hospital Course: Patient was admitted under hospital service. Patient had been diagnosed to have probable metastatic disease to the liver from an unknown primary. Patient had presented with a hypotensive shock. Patient of clear mind. Requested no further management except for comfort. And hospice services patient placed on initially Dilaudid and fentanyl and Ativan. He was placed on subsequently Dilaudid drip due to significant increased pain and discomfort. Patient finally under hospice services. Plan - Discharge Summary Discharge Medication List HYDROmorphone [Dilaudid] 1 mg PO Q3H PRN #30 ml 04/12/16 [Rx] LORazepam ORAL CONC [Ativan Intensol] 1 mg PO DIRECTED #30 ml 04/12/16 [Rx] Scopolamine 1.5MG/72Hr Patch [TransDerm Scop] 1 patch TRANSDERM Q72H PRN #0 patch 04/12/16 [Rx] fentaNYL 12MCG/HR PATCH [Duragesic 12MCG/HR] 1 patch TRANSDERM Q72H #5 patch 02/16 [Rx] Discharge Disposition: - Preliminary Cause of Preliminary Cause of : Sepsis and septic shock and metastatic liver disease
== END 2016-04-17 13:15 | disposition expired | DRG 871 ==
LOC: 5ONC 12:24
PROVIDERS: ADMIT Internal Medicine; ATTEND Internal Medicine
DX: A41.9 Sepsis, unspecified organism (principal); R65.21 Severe sepsis with septic shock; N17.9 Acute kidney failure, unspecified; C78.7 Secondary malignant neoplasm of liver and intrahepatic bile duct; E86.0 Dehydration; E11.9 Type 2 diabetes mellitus without complications; C80.1 Malignant (primary) neoplasm, unspecified; I10 Essential (primary) hypertension; K57.90 Diverticulosis of intestine, part unspecified, without perforation or abscess without bleeding; Z85.46 Personal history of malignant neoplasm of prostate; Z79.82 Long term (current) use of aspirin; Z79.84 Long term (current) use of oral hypoglycemic drugs; Z79.899 Other long term (current) drug therapy; Z82.49 Family history of ischemic heart disease and other diseases of the circulatory system